=== PATIENT | female | born 1935 | race African-American/Black ===

== ENCOUNTER 2017-03-09 10:40 | Inpatient (IN) | payer OTHER ==
[2017-03-09 10:53] VITALS: BMI 28.4
--- NOTE | 2017-03-09 10:56 | PDOC ---
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 She was in bed prior to the incident so she did not suffer any trauma. Her home health aid eventually woke her up after some shaking and the patient returned to her baseline. She had some nausea with one episode of vomiting after the incident. The patient was on Lovenox in the past for anticoagulation but then it was stopped. Denies fevers, chills, diarrhea, cough, chest pain or other symptoms. Per family at bedside her current physical picture is per her baseline. Her PCP is Dr. Ochoa from [facility], not affiliated with [facility]. 03/09/17 12:05 Past History - Past Medical History Allergies/Adverse Reactions: Allergies Allergy/AdvReac Type Severity Reaction Status Date / Time No Known Allergies Allergy Verified 03/09/17 10:53 Home Medications: Ambulatory Orders Amlodipine Besylate [Norvasc -] 5 mg PO DAILY 03/09/17 Aspirin [Aspirin EC] 81 mg PO DAILY 03/09/17 Carbidopa/Levodopa *Cr* 25/100 [Sinemet *Cr* 25/100 -] 1 combo PO TID 03/09/17 Lisinopril [Prinivil] 10 mg PO DAILY 03/09/17 Metformin HCl 500 mg PO DAILY 03/09/17 Multivitamins [Tab-A-Vit -] 1 tab PO DAILY 03/09/17 [place]-3 Fatty Acids [[place]-3] 1,000 mg PO DAILY 03/09/17 Sertraline HCl [Zoloft -] 25 mg PO DAILY 03/09/17 Simvastatin 10 mg PO HS 03/09/17 CVA: Yes (cva x 3 left sided weakness/facial droop) Diabetes: Yes HTN: Yes Hypercholesterolemia: Yes - Psycho/Social/Smoking Cessation Hx Anxiety: No Suicidal Ideation: No Smoking History: Never smoked Have you smoked in the past 12 months: No Information on smoking cessation initiated: No Hx Alcohol Use: No Drug/Substance Use Hx: No Substance Use Type: None Review of Systems - Review of Systems Constitutional: No: Chills, Diaphoresis HEENTM: Yes: Cataracts. No: Difficulty Swallowing Respiratory: No: Cough, Shortness of Breath, Stridor, Wheezing Cardiac (ROS): No: Chest Pain, Irregular Heart Rate *Physical Exam - Vital Signs Last Vital Signs Temp Pulse Resp BP Pulse Ox 98.2 F 65 18 148/64 100 03/09/17 10:43 03/09/17 10:43 03/09/17 10:43 03/09/17 10:43 03/09/17 10:43 - Physical Exam General Appearance: Yes: Nourished, Appropriately Dressed, Thin. No: Apparent Distress HEENT: positive: EOMI, FABIAN, Other (Missing teeth. Left sided facial droop per baseline acording to family. ). negative: Normal ENT Inspection, Normal Voice Neck: negative: Tender Respiratory/Chest: positive: Lungs Clear, Normal Breath Sounds. negative: Chest Tender, Respiratory Distress Cardiovascular: positive: Regular Rhythm, Regular Rate, S1, S2. negative: Edema , JVD, Murmur, Tachycardia Gastrointestinal/Abdominal: positive: Normal Bowel Sounds, Flat, Soft. negative : Tender Extremity: negative: Normal Range of Motion (Decreased range of motion with active range but normal passive range of motion.) Integumentary: positive: Normal Color, Dry, Warm Neurologic: positive: Fully Oriented, Alert, Normal Mood/Affect. negative: Motor Strength 5/5 (Decreased motor strength on left side 2/5 but per baseline according to patient and family. No sensory deficit across face, arms, or legs.) ED Treatment Course - LABORATORY CBC & Chemistry Diagram: 03/09/17 11:33 03/09/17 11:33 Medical Decision Making - Medical Decision Making 81 year old female with symptoms concerning for TIA presenting one hour after event with complete return to baseline (left sided deficits at baseline). CT demonstrating potentially new left sided lacunar infarct so will admit patient to Dr. Vega with Dr. Segundo as the consult. Spoke with both physicians and will admit for tele admission for MRI and further workup of unresponsiveness episode which is still of unclear etiology. Possibly seizure vs. TIA. Patient also got 20 Atorvastin and 243 of aspirin to complete her 324. 03/09/17 13:03 *DC/Admit/Observation/Transfer Diagnosis at time of Disposition: TIA (transient ischemic attack) - Discharge Dispostion Admit: Yes - Referrals
[2017-03-09 12:07] LABS: INR 1.05 (0.82-1.09); PROTHROMBIN TIME (PATIENT) 11.6 SEC (9.98-11.88)
[2017-03-09 12:11] LABS: BASOPHIL 1.5 % (0-2.0); EOSINOPHIL 3.3 % (0-4.5); MCH 29.2 pg (25.7-33.7); MCHC 33.4 g/dl (32.0-36.0); MEAN CELL VOLUME 87.4 fl (80-96); MEAN PLT VOLUME 7.6 fl (7.5-11.1); NEUTROPHILS 52.9 % (42.8-82.8); PLATELET COUNT 354 K/MM3 (134-434); RDW 14.4 % (11.6-15.6); WHITE BLOOD COUNT 6.4 K/mm3 (4.0-10.0)
[2017-03-09 12:12] LABS: ALBUMIN 3.7 g/dl (3.4-5.0); ANION GAP 10 (8-16); BILIRUBIN,TOTAL 0.3 mg/dL (0.2-1.0); CO2 24 mmol/L (21-32); CREATININE 1.1 mg/dL (0.55-1.02); GLUCOSE,RANDOM 120 mg/dL (74-106); SGOT/AST 23 U/L (15-37); SGPT/ALT 9 U/L (12-78); TOT PROT 8.3 g/dl (6.4-8.2)
[2017-03-09 12:14] LABS: ALK PHOS 35 U/L (45-117); CPK 190 IU/L (26-192); TROPONIN I < 0.02 ng/ml (0.00-0.05)
[2017-03-09] MEDS ORDERED: SODIUM CHLORIDE 0.9% 1000 ML INFUS.BAG IV ONE (12:17)
--- NOTE | 2017-03-09 12:36 | PDOC ---
Attending Attestation - Physicial Exam PE: 03/09/17 12:36 GENERAL: Awake, alert, and fully oriented, in no acute distress HEAD: No signs of trauma EYES: PERRLA, EOMI, sclera anicteric, conjunctiva clear ENT: Auricles normal inspection, hearing grossly normal, nares patent, oropharynx clear without exudates. Moist mucosa NECK: Normal ROM, supple, no lymphadenopathy, JVD, or masses LUNGS: Breath sounds equal, clear to auscultation bilaterally. No wheezes, and no crackles HEART: Regular rate and rhythm, normal S1 and S2, no murmurs, rubs or gallops ABDOMEN: Soft, nontender, normoactive bowel sounds. No guarding, no rebound. No masses EXTREMITIES: Normal range of motion, no edema. No clubbing or cyanosis. No cords, erythema, or tenderness NEUROLOGICAL: Left facial droop and left sided weakness, at baseline. Decreased sensation on the left side, but thats chronic for her. No headache. Cranial nerves II through XII grossly intact. Normal speech, normal gait SKIN: Warm, Dry, normal turgor, no rashes or lesions noted. - Medical Decision Making 03/09/17 12:36 Documentation prepared by Svitlana Nur, acting as medical sales associate for Angelique Briggs DO. <Svitlana Nur - Last Filed: 03/09/17 12:36> - Resident Resident Name: Dion Damian - ED Attending Attestation I have performed the following: I have examined & evaluated the patient, The case was reviewed & discussed with the resident, I agree w/resident's findings & plan, Exceptions are as noted - HPI HPI: 03/09/17 13:10 81yo female presents to the ED c/o syncope with her aide from home. Pt c/o nausea after eating breakfast to her aide at home, then a few min later worsened her L facial droop, which has since resolved. Hx of cva in the past, hx of L sided weakness and hx of L facial droop from prior cva. Pt denies oliva. No blurred vision. No nausea now. Pt without cp/sob. No abd pain. No vomiting or diarrhea. denies urinary complaints. Residual L sided weakness. Increase in levodopa dosing 3 weeks ago from 1x per day to 3x per day. No other medication changes. - Medical Decision Making 03/09/17 12:36 I, Dr. Angelique Briggs, DO, attest that this document has been prepared under my direction and personally reviewed by me in its entirety. I further attest, that it accurately reflects all work, treatment, procedures and medical decision -making performed by me. 03/09/17 13:13 a/p: 81yo female with syncope and L sided facial droop that has since resolved. -concern for tia - head ct ordered -labs -ua -will need admission for further eval of TIA and sycnope -tele monitoring 03/09/17 13:15 called by radiology - old changes thalamus - concern for cva 03/12/17 14:33 pt with TIA, will need admission. Pt with rapid resolution of symptoms, now at baseline. Not a TPA candidate. <Angelique Briggs - Last Filed: 03/12/17 14:37> Heart Score/ECG Review - ECG Intrepretation Comment:: 03/09/17 13:15 sinus at 65, nl axis, nl interval, baseline artifact, no acute st/t wave findings <Angelique Briggs - Last Filed: 03/12/17 14:37> NIH Stroke Scale - Last Known Well Date/Time & Onset Date Last Known Well: 03/09/17 Time Last Known Well: 10:00 - Initial Evaluation Level of consciousness: Alert Ask patient the month and their age: Answers both correctly Ask patient to open & close eyes; make fist and let go: Obeys both correctly Best gaze (horizontal eye movement): Normal Visual field testing: No visual field loss Facial paresis (Show teeth/raise eyebrows/close eyes tight): Minor paralysis ( flattened nasolabial fold, asymmetry on smiling) Motor Function: Left Arm: Drift Motor Function: Right Arm: Normal (extends arm 90 (or 45) degrees for 10 seconds without drift Motor Function: Left Leg: Some effort against gravity Motor Function: Right Leg: Normal (extends leg 30 degrees for 5 seconds without drift) Limb Ataxia: Present in one limb Sensory(Use pinprick test arms,legs,trunk,face/side to side): Normal Best language (Describe picture, name items, read sentences): No Aphasia Dysarthria (read several words): Normal articulation Extinction and Inattention: No abnormality (pt with hx of prior cva with residual L mild facial droop and weakness to L arm and L leg) - Total Score NIH Stroke Scale Score: 5 <Angelique Briggs - Last Filed: 03/12/17 14:37> tPA Exclusion checklist 3-4.5h - Time Elapsed Date last known well: 03/09/17 Time last known well: 10:00 Elaspsed time: 3 Day(s) and 4 Hour(s) and 36 Minutes - Thrombolytic Therapy Candidate Is patient eligible for thrombolytic therapy: No - Ineligibility reason(s) Reasons No tPA given: See reason(s) noted above (Pt with rapid resolution of new symptoms. Not a TPA candidate) <Angelique Briggs - Last Filed: 03/12/17 14:37>
[2017-03-09 14:29] LABS: URINE APPEARANCE CLEAR; URINE BILIRUBIN NEGATIVE (NEGATIVE); URINE BLOOD NEGATIVE (NEGATIVE); URINE COLOR LTYELLOW; URINE GLUCOSE (UA) NEGATIVE (NEGATIVE); URINE KETONE NEGATIVE (NEGATIVE); URINE LEUK ESTERASE 1+ (NEGATIVE); URINE NITRITE POSITIVE (NEGATIVE); URINE PROTEIN NEGATIVE (NEGATIVE); URINE UROBILINOGEN NEGATIVE mg/dL (0.2-1.0)
[2017-03-09 14:31] LABS: URINE BACTERIA FEW /hpf (NONE SEEN); URINE MUCUS RARE; URINE RBC 1 /hpf (0-3); URINE WBC 2 /hpf (3-5)
[2017-03-09 15:00] LABS: THYROID STIMULATING HORMONE 1.29 uIU/ml (0.358-3.74)
[2017-03-09] MEDS ORDERED: ASPIRIN 81 MG CHEWABLE TABLETS PO ONE (15:44)
[2017-03-09] MEDS ORDERED: ATORVASTATIN CA 20 MG TABLET (FP) PO ONE (15:44)
[2017-03-09] MEDS ORDERED: ASPIRIN 81 MG CHEWABLE TABLETS ONE (15:46)
[2017-03-09] MEDS ORDERED: ATORVASTATIN CA 40 MG TABLET (FP) ONE (15:46)
--- NOTE | 2017-03-09 18:40 | HP ---
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 She was in bed prior to the incident so she did not suffer any trauma. Her home health aid eventually woke her up after some shaking and the patient returned to her baseline. She had some nausea with one episode of vomiting after the incident. Her PCP is Dr. Ochoa from [facility], not affiliated with [facility]. 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 Cardiovascular: Yes: HTN Endocrine: Yes: Diabetes Mellitus - Smoking History Smoking history: Never smoked Have you smoked in the past 12 months: No - Alcohol/Substance Use Hx Alcohol Use: No Home Medications - Allergies Allergies/Adverse Reactions: Allergies Allergy/AdvReac Type Severity Reaction Status Date / Time No Known Allergies Allergy Verified 03/09/17 10:53 - Home Medications Home Medications: Ambulatory Orders Amlodipine Besylate [Norvasc -] 5 mg PO DAILY 03/09/17 Aspirin [Aspirin EC] 81 mg PO DAILY 03/09/17 Carbidopa/Levodopa *Cr* 25/100 [Sinemet *Cr* 25/100 -] 1 combo PO TID 03/09/17 Lisinopril [Prinivil] 10 mg PO DAILY 03/09/17 Metformin HCl 500 mg PO DAILY 03/09/17 Multivitamins [Tab-A-Vit -] 1 tab PO DAILY 03/09/17 [place]-3 Fatty Acids [[place]-3] 1,000 mg PO DAILY 03/09/17 Sertraline HCl [Zoloft -] 25 mg PO DAILY 03/09/17 Simvastatin 10 mg PO HS 03/09/17 Physical Examination Vital Signs: Vital Signs Temperature 98.2 F 03/09/17 10:43 Pulse Rate 60 03/09/17 15:00 Respiratory Rate 18 03/09/17 15:00 Blood Pressure 129/58 03/09/17 15:00 O2 Sat by Pulse Oximetry (%) 100 03/09/17 15:00 Constitutional: Yes: No Distress HENT: Yes: Atraumatic Neck: Yes: Supple Cardiovascular: Yes: Regular Rate and Rhythm Respiratory: Yes: CTA Bilaterally Gastrointestinal: Yes: Normal Bowel Sounds Extremities: Yes: WNL Edema: No Peripheral Pulses WNL: Yes Neurological: Yes: Alert Problem List - Problems (1) TIA (transient ischemic attack) Assessment/Plan: mri no acute infarct neuro checks pt eval neuro consult Code(s): G45.9 - TRANSIENT CEREBRAL ISCHEMIC ATTACK, UNSPECIFIED (2) HTN (hypertension) Assessment/Plan: on meds stable Code(s): I10 - ESSENTIAL (PRIMARY) HYPERTENSION (3) Diabetes Assessment/Plan: on metformin Code(s): E11.9 - TYPE 2 DIABETES MELLITUS WITHOUT COMPLICATIONS Assessment/Plan Laboratory Tests 03/09/17 03/09/17 03/09/17 11:10 11:33 11:33 WBC 6.4 RBC 3.44 L Hgb 10.0 L Hct 30.1 L MCV 87.4 MCH 29.2 MCHC 33.4 RDW 14.4 Plt Count 354 MPV 7.6 Neutrophils % 52.9 Lymphocytes % 32.0 Monocytes % 10.3 H Eosinophils % 3.3 Basophils % 1.5 INR 1.05 Sodium 131 L Potassium 5.0 Chloride 97 L Carbon Dioxide 24 Anion Gap 10 BUN 18 Creatinine 1.1 H Creat Clearance w eGFR 47.55 Random Glucose 120 H Calcium 10.0 Total Bilirubin 0.3 AST 23 ALT 9 L Alkaline Phosphatase 35 L Creatine Kinase 190 Creatine Kinase Index 1.7 CK-MB (CK-2) 3.244 Troponin I < 0.02 Total Protein 8.3 H Albumin 3.7 TSH 1.29 Urine Color Urine Appearance Urine pH Urine Protein Urine Glucose (UA) Urine Ketones Urine Blood Urine Nitrite Urine Bilirubin Urine Urobilinogen Ur Leukocyte Esterase Urine RBC Urine WBC Ur Epithelial Cells Urine Bacteria Urine Mucus 03/09/17 03/09/17 14:20 14:35 WBC RBC Hgb Hct MCV MCH MCHC RDW Plt Count MPV Neutrophils % Lymphocytes % Monocytes % Eosinophils % Basophils % INR Sodium Potassium Chloride Carbon Dioxide Anion Gap BUN Creatinine Creat Clearance w eGFR Random Glucose Calcium Total Bilirubin AST ALT Alkaline Phosphatase Creatine Kinase Creatine Kinase Index CK-MB (CK-2) Troponin I Total Protein Albumin TSH Cancelled Urine Color Ltyellow Urine Appearance Clear Urine pH 7.0 Urine Protein Negative Urine Glucose (UA) Negative Urine Ketones Negative Urine Blood Negative Urine Nitrite Positive Urine Bilirubin Negative Urine Urobilinogen Negative Ur Leukocyte Esterase 1+ H Urine RBC 1 Urine WBC 2 Ur Epithelial Cells Rare Urine Bacteria Few Urine Mucus Rare Active Medications Generic Name Dose Route Start Last Admin Trade Name Lynnette PRN Reason Stop Dose Admin Amlodipine Besylate 5 mg 03/10/17 10:00 03/10/17 09:21 Norvasc - PO 5 mg DAILY SUPA Administration Aspirin 81 mg 03/10/17 10:00 03/10/17 09:20 Ecotrin - PO 81 mg DAILY SUPA Administration Atorvastatin Calcium 10 mg 03/09/17 22:00 03/09/17 22:45 Lipitor - PO 10 mg HS SUPA Administration Carbidopa/Levodopa 1 combo 03/09/17 22:00 03/10/17 14:06 Sinemet *Cr* 25/100 - PO 1 combo TID SUPA Administration Lisinopril 10 mg 03/10/17 10:00 03/10/17 09:20 Prinivil PO 10 mg DAILY SUPA Administration Metformin HCl 500 mg 03/10/17 07:00 03/10/17 06:41 Glucophage - PO Not Given DAILY@0700 SUPA Sertraline HCl 25 mg 03/10/17 10:00 03/10/17 09:20 Zoloft - PO 25 mg DAILY SUPA Administration
--- NOTE | 2017-03-09 21:29 | EKG ---
Test Reason : Blood Pressure : / mmHG Vent. Rate : 065 BPM Atrial Rate : 065 BPM P-R Int : 198 ms QRS Dur : 078 ms QT Int : 426 ms P-R-T Axes : 020 -01 035 degrees QTc Int : 443 ms NORMAL SINUS RHYTHM MINIMAL VOLTAGE CRITERIA FOR LVH, MAY BE NORMAL VARIANT NONSPECIFIC T WAVE ABNORMALITY ABNORMAL ECG NO PREVIOUS ECGS AVAILABLE Confirmed by TEJAL FRANKLIN MD ([id number]) on 03/09/2017 9:29:09 PM Referred By: Confirmed By:TEJAL FRANKLIN MD
[2017-03-09] MEDS: ATORVASTATIN CA 10 MG TABLET (FP) PO SCH (22:45)
[2017-03-09] MEDS ORDERED: PT OWN MED DRAWER 7, Y5N ONE (22:58)
[2017-03-10] MEDS ORDERED: PT OWN MED DRAWER 7, Y5N ONE ×4 (06:27→21:37)
[2017-03-10] MEDS: metFORMIN HCL 500 MG TABLET (FP) PO SCH (06:41)
--- NOTE | 2017-03-10 09:01 | CON.NEURO ---
Consult - History of Present Illness History of Present Illness: 81 Year old female. She has history of stroke x 3, DM,HTN, Parkinson disease, depression. She has some residul paralysis on left side of body. She has a home health aide. She noticed that she rolled back her head and passed out and noticed worsening of left face dropiness. There was no observed tonic clonic activity. There was no tongue bite or incontinence or post ictal confusion. [place] last stroke [place] 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 Cardio/Vascular: Yes: HTN Endocrine: Yes: Diabetes Mellitus - Alcohol/Substance Use Hx Alcohol Use: No - Smoking History Smoking history: Never smoked Have you smoked in the past 12 months: No Home Medications - Allergies Allergies/Adverse Reactions: Allergies Allergy/AdvReac Type Severity Reaction Status Date / Time No Known Allergies Allergy Verified 03/09/17 10:53 - Home Medications Home Medications: Ambulatory Orders Amlodipine Besylate [Norvasc -] 5 mg PO DAILY 03/09/17 Aspirin [Aspirin EC] 81 mg PO DAILY 03/09/17 Carbidopa/Levodopa *Cr* 25/100 [Sinemet *Cr* 25/100 -] 1 combo PO TID 03/09/17 Lisinopril [Prinivil] 10 mg PO DAILY 03/09/17 Metformin HCl 500 mg PO DAILY 03/09/17 Multivitamins [Tab-A-Vit -] 1 tab PO DAILY 03/09/17 [place]-3 Fatty Acids [[place]-3] 1,000 mg PO DAILY 03/09/17 Sertraline HCl [Zoloft -] 25 mg PO DAILY 03/09/17 Simvastatin 10 mg PO HS 03/09/17 Physical Exam-Neuro Vital Signs: Vital Signs Temperature 98.8 F 03/10/17 06:00 Pulse Rate 65 03/10/17 06:00 Respiratory Rate 18 03/10/17 06:00 Blood Pressure 155/75 03/10/17 06:00 O2 Sat by Pulse Oximetry (%) 96 03/09/17 23:00 Labs: INR, PTT INR 1.05 (0.82-1.09) 03/09/17 11:10 Imaging - Results Cat Scan: Report Reviewed MRI: Report Reviewed Assessment/Plan cc pasing out episode and worsening of left facial droopines lasting 15 minute HPI 81 Year old female. She has history of stroke x 3, DM,HTN, Parkinson disease , depression. She has some residul paralysis on left side of body. She has a home health aide. She noticed that she rolled back her head and passed out and noticed worsening of left face dropiness. There was no observed tonic clonic activity. There was no tongue bite or incontinence or post ictal confusion. During last stroke [place]. Past Medical History as above. Social History , never smoked , not able to ambulate , denies alochol abuse Home Medicaiton Amlodipine Besylate [Norvasc -] 5 mg PO DAILY 03/09/17 Aspirin [Aspirin EC] 81 mg PO DAILY 03/09/17 Carbidopa/Levodopa *Cr* [Sinemet *Cr* -] 1 combo PO TID 03/09/17 Lisinopril [Prinivil] 10 mg PO DAILY 03/09/17 Metformin HCl 500 mg PO DAILY 03/09/17 Multivitamins [Tab-A-Vit -] 1 tab PO DAILY 03/09/17 [place]-3 Fatty Acids [[place]-3] 1,000 mg PO DAILY 03/09/17 Sertraline HCl [Zoloft -] 25 mg PO DAILY 03/09/17 Simvastatin 10 mg PO HS 03/09/17 Neurological Examination Bp at admision was 129/58 alert and oriented x 3, speech is slurred, eomi and mild left sided facial palsy left sided hemparesis and there is frozen shoulder left upper extremity strength is grade 3 and left lower extremity is grade 2 sensaiton is intact ( Patient is back to her baseline) ct scan and mri showed old ischemic diseaes but nothing acute no carotid ultrasound or echo report available Assessment-- Most likely explanation of this event is possible focal seizures with secondary generalization or Syncope. Typically loss of consiouness is not associated without large stroke ( mri of brain is normal). This was the first episode. Plan-- suggest that patient my have carotid ultrasound and EEG , if she were to stay in hospital, otherwise can be done outpatient - no need for AED as it it not entirely clear and it was first episode - no need to change apsirin and statin , as suspician for stroke is low - institution librarian consult for possible syncopal episode. - Patient can follow up with me as outpatient . Thank you so much Sabas Ware MD
[2017-03-10] MEDS: LISINOPRIL 10 MG TABLET (FP) PO SCH (09:20)
[2017-03-10] MEDS: SERTRALINE HCL 25 MG TABLET (FP) PO SCH (09:20)
[2017-03-10] MEDS: ASPIRIN COATED 81 MG TABLET.EC PO SCH (09:20)
[2017-03-10] MEDS: amLODIPine BESYLATE 5 MG TABLET (FP) PO SCH (09:21)
--- NOTE | 2017-03-10 10:46 | CONSULT ---
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 She was in bed prior to the incident so she did not suffer any trauma. Her home health aid eventually woke her up after some shaking and the patient returned to her baseline. She had some nausea with one episode of vomiting after the incident." Per nursing, pt is holding PO trials in her mouth, unable to transfer. 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
--- NOTE | 2017-03-10 12:30 | PN ---
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, BINDERY LEADPERSON - Note 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: Attempted to see pt several times, however, downstairs for testing. Nursing reports oral holding during po trials.. Suggest ddowngrade to dys puree and nectar thick liquids.Monitor tolerance. To follow.
--- NOTE | 2017-03-10 17:19 | PN ---
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, Physician History of Present Illness: feeling better - Current Medication List Current Medications: Active Medications Amlodipine Besylate (Norvasc -) 5 mg PO DAILY [facility] Last Admin: 03/10/17 09:21 Dose: 5 mg Aspirin (Ecotrin -) 81 mg PO DAILY [facility] Last Admin: 03/10/17 09:20 Dose: 81 mg Atorvastatin Calcium (Lipitor -) 10 mg PO HS [facility] Last Admin: 03/09/17 22:45 Dose: 10 mg Carbidopa/Levodopa (Sinemet *Cr* 25/100 -) 1 combo PO TID [facility] Last Admin: 03/10/17 14:06 Dose: 1 combo Lisinopril (Prinivil) 10 mg PO DAILY [facility] Last Admin: 03/10/17 09:20 Dose: 10 mg Metformin HCl (Glucophage -) 500 mg PO DAILY@0700 [facility] Last Admin: 03/10/17 06:41 Dose: Not Given Sertraline HCl (Zoloft -) 25 mg PO DAILY [facility] Last Admin: 03/10/17 09:20 Dose: 25 mg - Objective Vital Signs: Vital Signs Temperature 99.5 F 03/10/17 13:29 Pulse Rate 62 03/10/17 13:29 Respiratory Rate 16 03/10/17 13:29 Blood Pressure 150/64 03/10/17 13:29 O2 Sat by Pulse Oximetry (%) 98 03/10/17 07:35 Constitutional: Yes: Calm HENT: Yes: Atraumatic Neck: Yes: Supple Cardiovascular: Yes: Regular Rate and Rhythm Respiratory: Yes: CTA Bilaterally Extremities: Yes: WNL Edema: No Peripheral Pulses WNL: Yes Neurological: Yes: Alert, Weakness (luex llex) Labs: INR, PTT INR 1.05 (0.82-1.09) 03/09/17 11:10 Problem List - Problems (1) TIA (transient ischemic attack) Assessment/Plan: mri no acute infarct neuro checks carotid us done...no significant stenosis per report will get cardiology consult need to r/o arrythmia Code(s): G45.9 - TRANSIENT CEREBRAL ISCHEMIC ATTACK, UNSPECIFIED (2) HTN (hypertension) Assessment/Plan: on meds stable Code(s): I10 - ESSENTIAL (PRIMARY) HYPERTENSION (3) Diabetes Assessment/Plan: on metformin Code(s): E11.9 - TYPE 2 DIABETES MELLITUS WITHOUT COMPLICATIONS
[2017-03-10] MEDS: ATORVASTATIN CA 10 MG TABLET (FP) PO SCH (22:36)
[2017-03-11] MEDS ORDERED: PT OWN MED DRAWER 7, Y5N ONE ×3 (06:15→20:49)
[2017-03-11] MEDS: metFORMIN HCL 500 MG TABLET (FP) PO SCH (06:16)
[2017-03-11] MEDS: amLODIPine BESYLATE 5 MG TABLET (FP) PO SCH (09:21)
[2017-03-11] MEDS: SERTRALINE HCL 25 MG TABLET (FP) PO SCH (09:21)
[2017-03-11] MEDS: LISINOPRIL 10 MG TABLET (FP) PO SCH (09:21)
[2017-03-11] MEDS: ASPIRIN COATED 81 MG TABLET.EC PO SCH (09:21)
--- NOTE | 2017-03-11 10:33 | CONSULT ---
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 She was in bed prior to the incident so she did not suffer any trauma. Her home health aid eventually woke her up after some shaking and the patient returned to her baseline. She had some nausea with one episode of vomiting after the incident." Per nursing, pt is holding PO trials in her mouth, unable to transfer. Attempted to see pt sdeveral times on the , but she was off the floor. 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 - Admission Reason For Visit: TRANSIENT CEREBRAL ISCHEMIA - Diagnostics X-ray: Report Reviewed CT Scan: Report Reviewed MRI: Report Reviewed - General Mental Status: Alert and Oriented, Awake and Alert, Able to Follow Commands Attention: Intact Ability to Follow Directions: Good Head/Neck Control: Good - Hearing Hearing: Normal Speech Evaluation - Communication Primary Language: [place] Oral Expression Ability: Yes: Mild Impairment - Speech Production Dysarthria: Yes: Hypokinetic Able to Make Needs Known: Yes: Mildly Impaired Intelligibility: Yes: Mildly Impaired - Speech Characteristics Voice Loudness: Mildly Soft/Quiet Voice Pitch: Yes: Normal Voice Phonatory-based Quality: Yes: Normal Nasal Resonance: Normal Articulation: Yes: Precise Voice, Other Observations: Yes: Progressively Weak Voice - Language/Auditory Comprehension Follows: Yes: 1 Stage Simple Commands - Language/Verbal Expression Able to Respond to Simple Queries: Yes: WNL Able to Communicate Wants and Needs: Yes: WNL Functional Communication Status: Yes: WNL - 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 Mild hypokinetic dysarthria. tremor/pill rolling? in left contracted hand. - Disposition Discharge to: Home with Assist (sched for today) - Dysphagia Impressions/Plan Swallowing Skills: Impaired Dysphagia Impressions: Mild Impairment *Silent aspiration: cannot be R/O at bedside Dysphagia Treatment Plan: Small Bites, Chin Tuck/Down, Safe Rate, 1/2 tsp. at a time, Elevate HOB during feed, OOB for meals, OOB for 1 h. after meals, Other ( Alternate solids with liquids) Recommendations: Neuro Consult (f/u as out pt for possible adjustment of PD medication to assist in oral dysphagia.), Modified Barium Swallow (as out pt, if indicated.) - Recommendations Diet Consistency: Dysphagia Minced, 1 - 2 Soft Items Medication Administration: Whole with water Liquids: Thin Liquids (single sips) Supplement: Ensure
--- NOTE | 2017-03-11 11:53 | CON.CARD ---
Consult - History of Present Illness History of Present Illness: Consultation requested by Dr. Silvia Traore Cardiology Consultation Location: [address] Chief Complaint: 1. LOC 81 year old Black female [place] has long standing history of HTN, NIDDM, hypercholesterolemia, recurring CVAs. History of probable Parkinsonism. Patient was brought to the hospital with history of nausea, followed by sudden LOC and vomiting. There is no mention of seizures, loss of sphincter control or new motor or sensory deficits. No history of chest pain or discomfort, no dyspnea or orthopnea reported. No history of palpitations, lightheadedness with change in posture of position or vertigo. Patient states that she is mostly bed bound. Past History: As mentioned in the history of present illness Surgical history: 1. S/p abdominal surgery for a benign mass 2. S/p bilateral cataract surgery 3. S/p appendectomy Social history: , has 10 children. Patient is uncertain if they have any illnesses, non- smoker and does not drink. Family history: Patient is unsure at what ages her parents or whether they had any illnesses. Had ten siblings, most of them are . Allergies: None reported. Home Medication List Active Medications Generic Name Dose Route Start Last Admin Trade Name Freq PRN Reason Stop Dose Admin Amlodipine Besylate 5 mg 03/10/17 10:00 03/11/17 09:21 Norvasc - PO 5 mg DAILY SUPA Administration Aspirin 81 mg 03/10/17 10:00 03/11/17 09:21 Ecotrin - PO 81 mg DAILY SUPA Administration Atorvastatin Calcium 10 mg 03/09/17 22:00 03/10/17 22:36 Lipitor - PO 10 mg HS SUPA Administration Carbidopa/Levodopa 1 combo 03/09/17 22:00 03/11/17 06:16 Sinemet *Cr* 25/100 - PO Not Given TID SUPA Lisinopril 10 mg 03/10/17 10:00 03/11/17 09:21 Prinivil PO 10 mg DAILY SUPA Administration Metformin HCl 500 mg 03/10/17 07:00 03/11/17 06:16 Glucophage - PO Not Given DAILY@0700 SUPA Sertraline HCl 25 mg 03/10/17 10:00 03/11/17 09:21 Zoloft - PO 25 mg DAILY SUPA Administration Review of Systems: Constitutional: No history of chills, fever or night sweats. No history of unintentional weight loss. HEENT: No history of headaches, diplopia, blurred vision. No history of epistaxis or hoarseness. No tinnitus. Cardiovascular: See history of present illness. Respiratory: See history of present illness. No history of cough, expectoration or hemoptysis. No history of tuberculosis. GI: See history of present illness. No history of melena, or hematemesis. No history of abdominal pain or discomfort, no change in bowel habits reported. 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 Endocrine: No history of polyuria or polydipsia. No history of intolerance to cold or warm weather. Musculoskeletal: No arthralgias or history of myalgia. : No history of frequency, dysuria or hematuria reported. HEME: No history of bleeding, anemia or ecchymosis. O: 81 year old female was in no acute distress, no pallor, cyanosis, clubbing, or jaundice. Last Vital Signs Temp Pulse Resp BP Pulse Ox 98.7 F 66 20 141/56 95 03/11/17 09:20 03/11/17 09:20 03/11/17 09:20 03/11/17 09:20 03/11/17 06:00 Intake & Output 03/08/17 03/09/17 03/10/17 03/11/17 23:59 23:59 23:59 23:59 Intake Total 25 550 Balance 25 550 Weight 165 lb 11.2 oz Neck: Supple, no JVD, negative HJR, carotids were equal and upstrokes were normal, no thyromegaly appreciated. Heart: PMI was in the 5th intercostal space, no heaves or thrills, S1 and S2 were normal. No murmurs or gallops were appreciated. Lungs: Clear on auscultation bilaterally. Abdomen: Soft, nontender, no hepatosplenomegaly appreciated, and no palpable masses were felt. Extremities: No calf tenderness or dependent edema. Pulses are normal. EC03/09/17 Baseline artifacts, sinus rhythm, LAD, nonspecific ST-T abnormalities, no previous ECG is available for comparison. Lab Data: CBCD WBC 6.4 K/mm3 (4.0-10.0) 03/09/17 11:33 RBC 3.44 M/mm3 (3.60-5.2) L 03/09/17 11:33 Hgb 10.0 GM/dL (10.7-15.3) L 03/09/17 11:33 Hct 30.1 % (32.4-45.2) L 03/09/17 11:33 MCV 87.4 fl (80-96) 03/09/17 11:33 MCHC 33.4 g/dl (32.0-36.0) 03/09/17 11:33 RDW 14.4 % (11.6-15.6) 03/09/17 11:33 Plt Count 354 K/MM3 (134-434) 03/09/17 11:33 MPV 7.6 fl (7.5-11.1) 03/09/17 11:33 CMP Sodium 131 mmol/L (136-145) L 03/09/17 11:33 Potassium 5.0 mmol/L (3.5-5.1) 03/09/17 11:33 Chloride 97 mmol/L (98-107) L 03/09/17 11:33 Carbon Dioxide 24 mmol/L (21-32) 03/09/17 11:33 Anion Gap 10 (8-16) 03/09/17 11:33 BUN 18 mg/dL (7-18) 03/09/17 11:33 Creatinine 1.1 mg/dL (0.55-1.02) H 03/09/17 11:33 Creat Clearance w eGFR 47.55 (>60) 03/09/17 11:33 Calcium 10.0 mg/dL (8.5-10.1) 03/09/17 11:33 Total Bilirubin 0.3 mg/dL (0.2-1.0) 03/09/17 11:33 AST 23 U/L (15-37) 03/09/17 11:33 ALT 9 U/L (12-78) L 03/09/17 11:33 Alkaline Phosphatase 35 U/L (45-117) L 03/09/17 11:33 Total Protein 8.3 g/dl (6.4-8.2) H 03/09/17 11:33 Albumin 3.7 g/dl (3.4-5.0) 03/09/17 11:33 X-Ray Chest: No evidence of active pulmonary disease. Carotid Ultrasound: No obstructive carotid artery disease reported. Impression: 1. Syncope, etiology: a). Most probably vasovagal, in view of clinical presentations of nausea preceding the syncopal episode. b). Cerebrovascular ischemia c). Arrythmias need to be excluded. d). Hypoglycemic episode, needs to be excluded. 2. HTN/HCVD 3. NIDDM. 4. Hypercholesterolemia. 5. S/p CVA with left hemiplegia. 6. Parkinsonism. 7. Anemia, etiology to be determined. 8. Hyponatremia. Recommendation: 1. Repeat CBC, lipid profile and BMP. 2. Evaluation of anemia. 3. Holter monitor. 4. Bedside echocardiogram. 5. Check BP supine and sitting. 6. Follow up ECG. Prognosis: Guarded Attestation: Documentation prepared by Laura Jefferson, acting as medical device engineer for Joaquin Russo MD. 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 - Allergies Allergies/Adverse Reactions: Allergies Allergy/AdvReac Type Severity Reaction Status Date / Time No Known Allergies Allergy Verified 03/09/17 10:53 - Home Medications Home Medications: Ambulatory Orders Amlodipine Besylate [Norvasc -] 5 mg PO DAILY 03/09/17 Aspirin [Aspirin EC] 81 mg PO DAILY 03/09/17 Carbidopa/Levodopa *Cr* 25/100 [Sinemet *Cr* 25/100 -] 1 combo PO TID 03/09/17 Lisinopril [Prinivil] 10 mg PO DAILY 03/09/17 Metformin HCl 500 mg PO DAILY 03/09/17 Multivitamins [Tab-A-Vit -] 1 tab PO DAILY 03/09/17 [place]-3 Fatty Acids [[place]-3] 1,000 mg PO DAILY 03/09/17 Sertraline HCl [Zoloft -] 25 mg PO DAILY 03/09/17 Simvastatin 10 mg PO HS 03/09/17 Vital Signs: Vital Signs Temperature 98.7 F 03/11/17 09:20 Pulse Rate 66 03/11/17 09:20 Respiratory Rate 20 03/11/17 09:20 Blood Pressure 141/56 03/11/17 09:20 O2 Sat by Pulse Oximetry (%) 95 03/11/17 06:00 - Other Data Labs, Other Data: INR, PTT INR 1.05 (0.82-1.09) 03/09/17 11:10
--- NOTE | 2017-03-11 16:15 | PN ---
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, Physician History of Present Illness: feeling better - Current Medication List Current Medications: Active Medications Amlodipine Besylate (Norvasc -) 5 mg PO DAILY [facility] Last Admin: 03/11/17 09:21 Dose: 5 mg Aspirin (Ecotrin -) 81 mg PO DAILY [facility] Last Admin: 03/11/17 09:21 Dose: 81 mg Atorvastatin Calcium (Lipitor -) 10 mg PO HS [facility] Last Admin: 03/10/17 22:36 Dose: 10 mg Carbidopa/Levodopa (Sinemet *Cr* 25/100 -) 1 combo PO TID [facility] Last Admin: 03/11/17 15:04 Dose: 1 combo Lisinopril (Prinivil) 10 mg PO DAILY [facility] Last Admin: 03/11/17 09:21 Dose: 10 mg Metformin HCl (Glucophage -) 500 mg PO DAILY@0700 [facility] Last Admin: 03/11/17 06:16 Dose: Not Given Sertraline HCl (Zoloft -) 25 mg PO DAILY [facility] Last Admin: 03/11/17 09:21 Dose: 25 mg - Objective Vital Signs: Vital Signs Temperature 98.8 F 03/11/17 14:00 Pulse Rate 64 03/11/17 14:00 Respiratory Rate 20 03/11/17 14:00 Blood Pressure 145/65 03/11/17 14:00 O2 Sat by Pulse Oximetry (%) 95 03/11/17 06:00 Constitutional: Yes: No Distress HENT: Yes: Atraumatic Neck: Yes: Supple Cardiovascular: Yes: Regular Rate and Rhythm Respiratory: Yes: CTA Bilaterally Gastrointestinal: Yes: Normal Bowel Sounds Extremities: Yes: WNL Neurological: Yes: Weakness (left upper and lower extremity post cva) Labs: INR, PTT INR 1.05 (0.82-1.09) 03/09/17 11:10 Problem List - Problems (1) TIA (transient ischemic attack) Assessment/Plan: mri no acute infarct neuro checks carotid us done...no significant stenosis per report echo holter Code(s): G45.9 - TRANSIENT CEREBRAL ISCHEMIC ATTACK, UNSPECIFIED (2) HTN (hypertension) Assessment/Plan: on meds stable Code(s): I10 - ESSENTIAL (PRIMARY) HYPERTENSION (3) Diabetes Assessment/Plan: on metformin Code(s): E11.9 - TYPE 2 DIABETES MELLITUS WITHOUT COMPLICATIONS (4) Parkinson disease Assessment/Plan: neuro to look into the dose of sinemet Code(s): G20 - PARKINSON'S DISEASE
[2017-03-11] MEDS: ATORVASTATIN CA 10 MG TABLET (FP) PO SCH (21:38)
[2017-03-12] MEDS: metFORMIN HCL 500 MG TABLET (FP) PO SCH (06:11)
[2017-03-12] MEDS ORDERED: PT OWN MED DRAWER 7, Y5N ONE ×3 (06:13→20:39)
--- NOTE | 2017-03-12 08:58 | PN ---
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 (short form) - Note 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: cc pasing out episode and worsening of left facial droopines lasting 15 minute 81 Year old female. She has history of stroke x 3, DM,HTN, Parkinson disease, depression. She has some residul paralysis on left side of body. She has a home health aide. She noticed that she rolled back her head and passed out and noticed worsening of left face dropiness. There was no observed tonic clonic activity. There was no tongue bite or incontinence or post ictal confusion. [place] stroke [place] My suspician fo rstroke was low. no more episode, and possible seizure vs syncope. EEG was normal and carotid ultraosund is norml Past Medical History as above. 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 Plan-- no further treatment ( AED) OR TESTTING from neurological perspective - would see her as needed basis. she can follow up as outpatient please feel free to call me if you have any question. Sabas Ware MD
[2017-03-12] MEDS: LISINOPRIL 10 MG TABLET (FP) PO SCH (10:14)
[2017-03-12] MEDS: SERTRALINE HCL 25 MG TABLET (FP) PO SCH (10:14)
[2017-03-12] MEDS: ASPIRIN COATED 81 MG TABLET.EC PO SCH (10:14)
[2017-03-12] MEDS: amLODIPine BESYLATE 5 MG TABLET (FP) PO SCH (10:14)
--- NOTE | 2017-03-12 11:30 | PN ---
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 Case discussed with Dr. Vega on 03/11/17. I believe dysphagia symptoms are related to Parkinsons. Pt may benefit from PD medication modification. Recommendations Diet Consistency: Dysphagia Minced, 1 - 2 Soft Items Medication Administration: Whole with water Liquids: Thin Liquids (single sips) Supplement: Ensure
--- NOTE | 2017-03-12 16:45 | DS ---
Physical Examination Vital Signs: Vital Signs Temperature 99.5 F 03/12/17 14:25 Pulse Rate 69 03/12/17 14:25 Respiratory Rate 16 03/12/17 14:25 Blood Pressure 149/62 03/12/17 14:25 O2 Sat by Pulse Oximetry (%) 97 03/12/17 09:00 Discharge Summary Reason For Visit: TRANSIENT CEREBRAL ISCHEMIA Current Active Problems Diabetes (Acute) HTN (hypertension) (Acute) Parkinson disease (Acute) TIA (transient ischemic attack) (Acute) - Instructions Referrals: STAFF,NOT ON [Primary Care Provider] - - Home Medications Comprehensive Discharge Medication List: Ambulatory Orders Amlodipine Besylate [Norvasc -] 5 mg PO DAILY 03/09/17 Aspirin [Aspirin EC] 81 mg PO DAILY 03/09/17 Carbidopa/Levodopa *Cr* 25/100 [Sinemet *Cr* 25/100 -] 1 combo PO TID 03/09/17 Lisinopril [Prinivil] 10 mg PO DAILY 03/09/17 Metformin HCl 500 mg PO DAILY 03/09/17 Multivitamins [Multivit ([facility] Formulary)] 1 tab PO DAILY 03/09/17 [place]-3 Fatty Acids [[place]-3] 1,000 mg PO DAILY 03/09/17 Sertraline HCl [Zoloft -] 25 mg PO DAILY 03/09/17 Simvastatin 10 mg PO HS 03/09/17 ct home
--- NOTE | 2017-03-12 17:43 | PN ---
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, Physician History of Present Illness: holter was appled today cant dc her today - Current Medication List Current Medications: Active Medications Amlodipine Besylate (Norvasc -) 5 mg PO DAILY [facility] Last Admin: 03/12/17 10:14 Dose: 5 mg Aspirin (Ecotrin -) 81 mg PO DAILY [facility] Last Admin: 03/12/17 10:14 Dose: 81 mg Atorvastatin Calcium (Lipitor -) 10 mg PO HS [facility] Last Admin: 03/11/17 21:38 Dose: 10 mg Carbidopa/Levodopa (Sinemet *Cr* 25/100 -) 1 combo PO TID [facility] Last Admin: 03/12/17 13:47 Dose: 1 combo Lisinopril (Prinivil) 10 mg PO DAILY [facility] Last Admin: 03/12/17 10:14 Dose: 10 mg Metformin HCl (Glucophage -) 500 mg PO DAILY@0700 [facility] Last Admin: 03/12/17 06:11 Dose: Not Given Sertraline HCl (Zoloft -) 25 mg PO DAILY [facility] Last Admin: 03/12/17 10:14 Dose: 25 mg - Objective Vital Signs: Vital Signs Temperature 99.5 F 03/12/17 14:25 Pulse Rate 69 03/12/17 14:25 Respiratory Rate 16 03/12/17 14:25 Blood Pressure 149/62 03/12/17 14:25 O2 Sat by Pulse Oximetry (%) 97 03/12/17 09:00 Constitutional: Yes: No Distress HENT: Yes: Atraumatic Neck: Yes: Supple Cardiovascular: Yes: Regular Rate and Rhythm Respiratory: Yes: CTA Bilaterally Gastrointestinal: Yes: Normal Bowel Sounds Extremities: Yes: WNL Neurological: Yes: Alert, Oriented Labs: INR, PTT INR 1.05 (0.82-1.09) 03/09/17 11:10 Problem List - Problems (1) TIA (transient ischemic attack) Assessment/Plan: mri no acute infarct neuro checks carotid us done...no significant stenosis per report echo holter...applied toda need cardiology input before dc Code(s): G45.9 - TRANSIENT CEREBRAL ISCHEMIC ATTACK, UNSPECIFIED (2) HTN (hypertension) Assessment/Plan: on meds stable Code(s): I10 - ESSENTIAL (PRIMARY) HYPERTENSION (3) Diabetes Assessment/Plan: on metformin Code(s): E11.9 - TYPE 2 DIABETES MELLITUS WITHOUT COMPLICATIONS (4) Parkinson disease Assessment/Plan: on sinemet Code(s): G20 - PARKINSON'S DISEASE
[2017-03-12] MEDS: ATORVASTATIN CA 10 MG TABLET (FP) PO SCH (21:32)
[2017-03-13] MEDS ORDERED: PT OWN MED DRAWER 7, Y5N ONE (05:43)
[2017-03-13] MEDS: metFORMIN HCL 500 MG TABLET (FP) PO SCH (06:10)
[2017-03-13 06:42] LABS: BASOPHIL 1.3 % (0-2.0); EOSINOPHIL 6.2 % (0-4.5); MCH 29.5 pg (25.7-33.7); MCHC 33.9 g/dl (32.0-36.0); MEAN CELL VOLUME 87.3 fl (80-96); MEAN PLT VOLUME 7.5 fl (7.5-11.1); PLATELET COUNT 325 K/MM3 (134-434); RDW 14.7 % (11.6-15.6); WHITE BLOOD COUNT 5.6 K/mm3 (4.0-10.0)
[2017-03-13 07:00] LABS: ALBUMIN 3.2 g/dl (3.4-5.0); ALK PHOS 29 U/L (45-117); ANION GAP 7 (8-16); BILIRUBIN,TOTAL 0.4 mg/dL (0.2-1.0); CALCIUM 8.7 mg/dL (8.5-10.1); CO2 26 mmol/L (21-32); CREATININE 1.1 mg/dL (0.55-1.02); GLUCOSE,RANDOM 92 mg/dL (74-106); SGOT/AST 14 U/L (15-37); SGPT/ALT 8 U/L (12-78); TOT PROT 7.2 g/dl (6.4-8.2)
[2017-03-13] MEDS: SERTRALINE HCL 25 MG TABLET (FP) PO SCH (09:06)
[2017-03-13] MEDS: amLODIPine BESYLATE 5 MG TABLET (FP) PO SCH (09:06)
[2017-03-13] MEDS: ASPIRIN COATED 81 MG TABLET.EC PO SCH (09:07)
[2017-03-13] MEDS: LISINOPRIL 10 MG TABLET (FP) PO SCH (09:07)
[2017-03-13 13:52] VITALS: BP 138/55; PULSE 67; TEMP 99.3
--- NOTE | 2017-03-13 13:52 | HOL ---
Hook-up date: 2017-03-12 09:24:00 Duration: 24:00:00 Test Indications: R/O ARRYTHMIA Medications: 23303 QRS complexes 3 Ventricular ectopics which represent <1 % of total QRS comp. 437 Supraventricular ectopics which represent <1 % of total QRS comp. * Paced QRS complexs which represent % of total QRS comp. * % of Time Classified as Noise VENTRICULAR ECTOPY 1 Isolated 0 Bigeminal Cycles 1 Couplets 0 Runs 0 Beats in Runs * Beats LONGEST at * BPM at :: -- * Beats FASTEST at * BPM at :: -- SUPRAVENTRICULAR ECTOPY 427 Isolated 0 Couplets 2 Runs 10 Beats in Runs 7 Beats LONGEST at 139 BPM at 08:46:33 2017-03-13 7 Beats FASTEST at 139 BPM at 08:46:33 2017-03-13 HEART RATES 51 MIN at 06:51:15 2017-03-13 64 AVG 105 MAX at 14:55:49 2017-03-12 LONGEST RR 1.424 secs at 04:07:58 2017-03-13 The underlying rhythm was normal sinus ranging from 51 bpm to 105bpm with an average rate of 64 bpm. There were occasional single atrial premature contractions. Single episode of self limited paroxysmal supraventricular tachycardia at a rate of 139bpm, lasting 7 beats. Rare singel ventricular premature contractions and a single ventricular couplet. No diary entries. Confirmed by DEJAN GALAVIZ MD ([id number]) on 03/13/2017 1:52:05 PM Referred By: Overread By: DEJAN GALAVIZ MD
--- NOTE | 2017-03-13 14:22 | PN ---
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: 03/11/17 03/11/17 03/11/17 01:37 06:00 09:00 Breakfast 75% Lunch Supper Temperature 98.8 F 98.9 F 03/11/17 03/11/17 03/11/17 09:20 12:53 14:00 Breakfast Lunch 75% Supper Temperature 98.7 F 98.8 F 03/11/17 03/11/17 03/11/17 17:01 18:00 22:00 Breakfast Lunch Supper 75% Temperature 98.8 F 99.0 F 03/12/17 03/12/17 03/12/17 02:00 06:00 09:30 Breakfast 75% Lunch Supper Temperature 98.4 F 98.8 F Selected Entries 03/12/17 03/12/17 03/12/17 09:30 14:25 18:34 Breakfast 75% Lunch 100% Supper 100% 03/13/17 03/13/17 09:19 13:02 Breakfast 100% Lunch 75% Supper Pt is on pureed diet and nectar thick liquid. Recommendations Diet Consistency: Dysphagia Minced, 1 - 2 Soft Items Medication Administration: Whole with water Liquids: Thin Liquids (single sips) Supplement: Ensure Pending d/c.
--- NOTE | 2017-03-13 20:37 | DS ---
Physical Examination Vital Signs: Vital Signs Temperature 99.3 F 03/13/17 13:51 Pulse Rate 67 03/13/17 13:51 Respiratory Rate 16 03/13/17 13:51 Blood Pressure 138/55 03/13/17 13:51 O2 Sat by Pulse Oximetry (%) 99 03/13/17 09:08 Labs: CBC, BMP 03/13/17 06:00 03/13/17 06:00 Discharge Summary Reason For Visit: TRANSIENT CEREBRAL ISCHEMIA Current Active Problems Diabetes (Acute) HTN (hypertension) (Acute) Parkinson disease (Acute) TIA (transient ischemic attack) (Acute) - Instructions Diet, Activity, Other Instructions: dysphagia puree diet plese give lorro nabil recommendation see your neurologist as out pt Referrals: Sabas Ware MD [Staff Physician] - STAFF,NOT ON [Primary Care Provider] - Joaquin Russo MD [Staff Physician] - Disposition: HOME - Home Medications Comprehensive Discharge Medication List: Ambulatory Orders Amlodipine Besylate [Norvasc -] 5 mg PO DAILY 03/09/17 Aspirin [Aspirin EC] 81 mg PO DAILY 03/09/17 Carbidopa/Levodopa *Cr* 25/100 [Sinemet *Cr* 25/100 -] 1 combo PO TID 03/09/17 Lisinopril [Prinivil] 10 mg PO DAILY 03/09/17 Metformin HCl 500 mg PO DAILY 03/09/17 Multivitamins [Multivit ([facility] Formulary)] 1 tab PO DAILY 03/09/17 [place]-3 Fatty Acids [[place]-3] 1,000 mg PO DAILY 03/09/17 Sertraline HCl [Zoloft -] 25 mg PO DAILY 03/09/17 Simvastatin 10 mg PO HS 03/09/17 holter report and other reports reviewed dc home
== END 2017-03-13 17:53 | disposition home or self-care (01) | DRG 47 ==
LOC: JER 10:40 → INTOOBSV 14:28 → UNDOADMOB 14:28 → JERBED 14:28 → J4S 19:05 → OBSVTOIN 03-11 17:16
PROVIDERS: ADMIT Internal Medicine; ATTEND Internal Medicine
DX: G45.8 Other transient cerebral ischemic attacks and related syndromes (principal); I10 Essential (primary) hypertension; E11.9 Type 2 diabetes mellitus without complications; G20 Parkinson's disease; F02.80 Dementia in other diseases classified elsewhere, unspecified severity, without behavioral disturbance, psychotic disturbance, mood disturbance, and anxiety; F32.89 Other specified depressive episodes; I69.354 Hemiplegia and hemiparesis following cerebral infarction affecting left non-dominant side; R55 Syncope and collapse; I11.9 Hypertensive heart disease without heart failure; D64.9 Anemia, unspecified; E87.1 Hypo-osmolality and hyponatremia; E78.00 Pure hypercholesterolemia, unspecified; R56.9 Unspecified convulsions; G51.0 Bell's palsy
CPT/HCPCS: 36415; 70450-TC; 70551-TC; 71010-TC; 80053; 81003; 81015; 82553; 84443; 84484; 85025; 85610; 87086; 87186; 93005; 93010; 93225; 93226; 93306-TC; 93880-TC; 95816; 97116-GP; 97161-GP; 99285-25; G0378

== ENCOUNTER 2017-03-22 11:47 | Inpatient (IN) | payer OTHER ==
[2017-03-22 12:11] VITALS: BMI 28.3
[2017-03-22 12:35] LABS: BASOPHIL 1.9 % (0-2.0); MCH 29.4 pg (25.7-33.7); MCHC 33.9 g/dl (32.0-36.0); MEAN CELL VOLUME 86.8 fl (80-96); MEAN PLT VOLUME 7.4 fl (7.5-11.1); NEUTROPHILS 58.4 % (42.8-82.8); PLATELET COUNT 421 K/MM3 (134-434); RDW 14.8 % (11.6-15.6); WHITE BLOOD COUNT 6.9 K/mm3 (4.0-10.0)
--- NOTE | 2017-03-22 12:58 | PDOC ---
History of Present Illness - General Stated Complaint: POSSIBLE SEIZURE Time Seen by Provider: 03/22/17 11:54 History Source: Patient Exam Limitations: No Limitations - History of Present Illness Initial Comments: 81 year old female with PMH of CVA x3 with residual left-sided weakness, Parkinson's disease, and NIDDM who presents c/o two episodes of apparent LOC. The daughter states that the patient was sitting and told her she was feeling some ear pressure. The daughter told her to open and close her mouth repeatedly to pop the ear, and the patient began doing this but randomly "spaced out" and her head dropped backward while she was sitting. This first episode occurred at 11 am. She was not responsive for 8 minutes as timed by her daughter. During this episode the daughter (who is a RN) measured her blood pressure to be 132/65 , her heart rate to be 106, and her blood glucose to be 145. She was not talking at all after the first episode (patient does talk at baseline). When EMS arrived on scene and was attempting to place an IV she had a second episode of the same symptoms. She has been drowsy since the second episode resolved. Past History - Past Medical History Allergies/Adverse Reactions: Allergies Allergy/AdvReac Type Severity Reaction Status Date / Time No Known Allergies Allergy Verified 03/22/17 12:58 Home Medications: Ambulatory Orders Amlodipine Besylate [Norvasc -] 5 mg PO DAILY 03/09/17 Aspirin [Aspirin EC] 81 mg PO DAILY 03/09/17 Carbidopa/Levodopa *Cr* 25/100 [Sinemet *Cr* 25/100 -] 1 combo PO TID 03/09/17 Lisinopril [Prinivil] 10 mg PO DAILY 03/09/17 Metformin HCl 500 mg PO DAILY 03/09/17 Multivitamins [Multivit ([facility] Formulary)] 1 tab PO DAILY 03/09/17 Bourbon-3 Fatty Acids [Bourbon-3] 1,000 mg PO DAILY 03/09/17 Sertraline HCl [Zoloft -] 25 mg PO DAILY 03/09/17 Simvastatin 10 mg PO HS 03/09/17 CVA: Yes (cva x 3 left sided weakness/facial droop) Diabetes: Yes HTN: Yes Hypercholesterolemia: Yes - Suicide/Smoking/Psychosocial Hx Smoking History: Never smoked Have you smoked in the past 12 months: No Information on smoking cessation initiated: No Hx Alcohol Use: No Drug/Substance Use Hx: No Substance Use Type: None Review of Systems - Review of Systems Able to Perform ROS?: No (memory difficulty) Neurological: Yes: Other *Physical Exam - Vital Signs Last Vital Signs Temp Pulse Resp BP Pulse Ox 97.7 F 64 20 146/66 100 03/22/17 12:07 03/22/17 12:07 03/22/17 12:07 03/22/17 12:07 03/22/17 12:12 - Physical Exam General Appearance: Yes: Appropriately Dressed, Other (chronically ill-appearing , answers simple questions with whispers but otherwise not conversive, makes no eye contact). No: Apparent Distress HEENT: positive: EOMI (but difficulty with tracking), TMs Normal, Hearing Grossly Normal, Other (whispering voice only, arcus senilus, edentulous, left facial droop stated chronic by family, dry mucous membranes). negative: Scleral Icterus (R), Scleral Icterus (L), Nasal Congestion Neck: positive: Trachea midline, Supple. negative: Tender, Rigid Respiratory/Chest: positive: Lungs Clear, Normal Breath Sounds. negative: Respiratory Distress, Crackles, Rhonchi, Stridor, Wheezing Cardiovascular: positive: Regular Rhythm, Regular Rate Gastrointestinal/Abdominal: positive: Normal Bowel Sounds, Soft. negative: Tender, Organomegaly, Pulsatile Mass, Guarding Musculoskeletal: positive: Normal Inspection. negative: Decreased Range of Motion, Vertebral Tenderness Extremity: positive: Normal Capillary Refill, Other (extremity muscle atrophy with L>R). negative: Tender, Cyanosis, Pedal Edema Integumentary: positive: Normal Color, Dry, Warm. 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 NML intact (difficulty tracking finger), Alert , Normal Mood/Affect, Normal Response, Facial Droop (left sided), Other ( oriented to name and date and able to tell that she is in the hospital, motor strength 4/5 right extremities and 3/5 left extremities) Heart Score/ECG Review - History History: Slightly suspicious - Electrocardiogram EKG: Normal - Age Age: >/= 65 - Risk Factors Risk Factors Heart Score: Yes Hx Hypertension, Yes Hx Diabetes Based on the list above the patient has:: 1-2 risk factors #1 ECG reviewed & interpreted by me at: 12:10 NSR, rate of 66, normal axis and intervals, moderate voltage for LVH. ED Treatment Course - LABORATORY CBC & Chemistry Diagram: 03/24/17 05:28 03/24/17 05:28 - ADDITIONAL ORDERS Additional order review: Laboratory Results 03/22/17 11:59 POC Glucometer [id number] 03/22/17 03/22/17 12:30 11:59 RBC 3.19 L MCV 86.8 MCHC 33.9 RDW 14.8 MPV 7.4 L Neutrophils % 58.4 D Lymphocytes % 28.1 Monocytes % 8.6 Eosinophils % 3.0 Basophils % 1.9 POC Glucometer [id number] - RADIOLOGY Radiology Studies Ordered: CXR without e/o acute cardiopulmonary processes Head CT shows no interval change from prior study. Medical Decision Making - Medical Decision Making This is an 81 yof with h/o CVA, Parkinson's, NIDDM who p/w 2 episodes LOC. On exam she does answer questions but otherwise minimally interactive and family states ALOC from baseline. DDX includes seizure or syncope (i.e. 2/2 infection, cardiogenic/arrhythmia, hypotension, vasovagal, etc). Ordered is EKG, lactate, CBCD, CMP, Mg, Phos, UA cx, CXR CXR shows nothing acute. EKG without acute findings. Lactate is negative. UA suggests UTI and 1 gm ceftriaxone is ordered. CBCD unremarkable. CMP notable for elevated BUN and Cr beyond her baseline per her prior [facility] records. Liter bolus NS is ordered. Spoke at length with Pt's daughter who requests that Pt's PCP be noted as Dr. Lake in [place]. Pt receives care at her SNF from the managing provider but her PCP is Dr. Lake and has been x30 years. Pt is admitted to [facility] for further workup and management. *DC/Admit/Observation/Transfer Diagnosis at time of Disposition: LUIS (acute kidney injury) Syncope Qualifiers: Syncope type: unspecified Qualified Code(s): R55 - Syncope and collapse UTI (urinary tract infection) Qualifiers: Urinary tract infection type: acute cystitis Hematuria presence: without hematuria Qualified Code(s): N30.00 - Acute cystitis without hematuria - Discharge Dispostion Condition at time of disposition: Guarded Admit: Yes
[2017-03-22 13:07] LABS: ALBUMIN 3.6 g/dl (3.4-5.0); ALK PHOS 37 U/L (45-117); ANION GAP 8 (8-16); BILIRUBIN,TOTAL 0.4 mg/dL (0.2-1.0); CALCIUM 9.9 mg/dL (8.5-10.1); CO2 25 mmol/L (21-32); CREATININE 1.4 mg/dL (0.55-1.02); GLUCOSE,RANDOM 148 mg/dL (74-106); SGOT/AST 21 U/L (15-37); SGPT/ALT 23 U/L (12-78); TOT PROT 8.1 g/dl (6.4-8.2)
--- NOTE | 2017-03-22 13:36 | PDOC ---
Attending Attestation - Resident Resident Name: Lennie Samaniego - ED Attending Attestation I have performed the following: I have examined & evaluated the patient, The case was reviewed & discussed with the resident, I agree w/resident's findings & plan, Exceptions are as noted - HPI HPI: 03/22/17 13:33 81 yo F with h/o DM HTN, prior CVA here for syncopal vs. seizure today. per EMS pt was at table, when suddenly became unresponsive, altered, lasted few minutes. eyes open, altered lasting 8 in, and then confused following. now at baseline. no c/o not feeling wel. denies chest pain, no sob. no headache. no n/ v no other complaints. ( pt poor historian, disoriented to year) - Physicial Exam PE: 03/22/17 13:37 awake alert , eyes open, speech, quite, clear. lungs clear bilaterally, heart rrr no mrg. abd soft nt nd. ext wwp. moves all four ext. 03/22/17 13:42 - Medical Decision Making 03/22/17 13:42 differential: syncope, vs. seizure , electrolyte abnormality, infection such as uti or pneumonia, plan labs ekg trop, lactate ua. reassess. 03/22/17 13:43 pt was admitted for recent tia, seizure vs. syncope workup. had mri which showed no acute infarct, only old changes. eeg was negative. was evaluated by dr. molina. will d/w dr molina. 03/22/17 15:38 pt with uti on labs, wbc normal electrolytes noted for mild LUIS, minimal urine output on straight cath. hydrated with normal saline bolus. given ceftriaxone for uti. will admit for luis, uti and syncope. Heart Score/ECG Review #1 General ECG Interpretation: Sinus Rhythm, Normal Rate (66), Normal Intervals, No acute ischemic changes (no st t wave changes) Compared to previous ECG there are: No significant change (comparison 03/09/17)
[2017-03-22 14:32] LABS: URINE APPEARANCE CLOUDY; URINE BILIRUBIN NEGATIVE (NEGATIVE); URINE BLOOD 1+ (NEGATIVE); URINE COLOR DKYELLOW; URINE GLUCOSE (UA) NEGATIVE (NEGATIVE); URINE KETONE NEGATIVE (NEGATIVE); URINE NITRITE NEGATIVE (NEGATIVE); URINE UROBILINOGEN NEGATIVE mg/dL (0.2-1.0)
[2017-03-22 14:45] LABS: URINE LEUK ESTERASE 2+ (NEGATIVE); URINE PROTEIN 1+ (NEGATIVE)
[2017-03-22 14:46] LABS: URINE HYALINE CAST 21 /lpf; URINE MUCUS RARE; URINE RBC 30 /hpf (0-3); URINE WBC 34 /hpf (3-5)
[2017-03-22] MEDS ORDERED: SODIUM CHLORIDE 0.9% 1000 ML INFUS.BAG IV ONE (15:37)
[2017-03-22] MEDS ORDERED: CEFTRIAXONE 1 GM in DEXTROSE 5%-WATER - 50 ML IVPB ONE (15:40)
[2017-03-22] MEDS: SODIUM CHLORIDE 1,000 ML IV SCH (17:23)
--- NOTE | 2017-03-22 17:30 | HP ---
CHIEF COMPLAINT: syncope PCP: HISTORY OF PRESENT ILLNESS: The patient is an 81 yo f w/ 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 This morning while eating breakfast, she began to experience some ear pressure. The daughter told her to open and close her mouth repeatedly to relieve the pressure, at which point the patient became unresponsive and slumped over in her wheel chair. This first episode occurred at 10:55 am. She was unresponsive for approximately 8 minutes. During this time , the daughter, who is an RN, measured her BP to be 122/65, her heart rate to be 106 and her blood glucose to be 145. After she became responsive again, she was not talking as she usually would at baseline. The patient had a second episode of syncope when EMS was attempting to place an IV. She continues to be drowsy after the resolution of the second episode. Patient denied chest pain, shortness of breath, fluttering of the chest, nausea, vomiting, diarrhea. ER course was notable for: (1) afebrile, Heart rate 68, BP 155/77 (2) UA with possible UTI (3) Recent Travel: PAST MEDICAL HISTORY: -see above PAST SURGICAL HISTORY: -Benign pelvic mass removed at [facility] -tubal ligation Social History: Smoking: never Alcohol: denies Drugs: denies Family History: Allergies No Known Allergies Allergy (Verified 03/22/17 12:58) HOME MEDICATIONS: Home Medications Medication Instructions Recorded Amlodipine Besylate [Norvasc -] 5 mg PO DAILY 03/09/17 Aspirin [Aspirin EC] 81 mg PO DAILY 03/09/17 Carbidopa/Levodopa *Cr* 25/100 1 combo PO TID 03/09/17 [Sinemet *Cr* 25/100 -] Lisinopril [Prinivil] 10 mg PO DAILY 03/09/17 Metformin HCl 500 mg PO DAILY 03/09/17 Multivitamins [Multivit ([facility] 1 tab PO DAILY 03/09/17 Formulary)] Brandon-3 Fatty Acids [Brandon-3] 1,000 mg PO DAILY 03/09/17 Sertraline HCl [Zoloft -] 25 mg PO DAILY 03/09/17 Simvastatin 10 mg PO HS 03/09/17 REVIEW OF SYSTEMS CONSTITUTIONAL: Absent: fever, chills, diaphoresis, generalized weakness, malaise, loss of appetite, weight change HEENT: Absent: rhinorrhea, nasal congestion, throat pain, throat swelling, difficulty swallowing, mouth swelling, ear pain, eye pain, visual changes CARDIOVASCULAR: Absent: chest pain, palpitations, irregular heart rate, peripheral edema RESPIRATORY: Absent: cough, shortness of breath, dyspnea with exertion, orthopnea, wheezing, stridor, hemoptysis GASTROINTESTINAL: Absent: abdominal pain, abdominal distension, nausea, vomiting, diarrhea, constipation, melena, hematochezia GENITOURINARY: Absent: dysuria, frequency, urgency, hesitancy, hematuria, flank pain, genital pain MUSCULOSKELETAL: Absent: myalgia, arthralgia, joint swelling, back pain, neck pain SKIN: Absent: rash, itching, pallor HEMATOLOGIC/IMMUNOLOGIC: Absent: easy bleeding, easy bruising, lymphadenopathy, frequent infections ENDOCRINE: Absent: unexplained weight gain, unexplained weight loss, heat intolerance, cold intolerance NEUROLOGIC: Absent: headache, focal weakness or paresthesias, dizziness, unsteady gait, seizure, mental status changes, bladder or bowel incontinence PSYCHIATRIC: Absent: anxiety, depression, suicidal or homicidal ideation, hallucinations. PHYSICAL EXAMINATION GENERAL: Patient drowsy with delayed response; fully oriented, in no acute distress. HEAD: Normal with no signs of trauma. EYES: Pupils equal, round and reactive to light, extraocular movements intact, sclera anicteric, conjunctiva clear. No lid lag. EARS, NOSE, THROAT: oropharynx clear without exudates. Moist mucous membranes. NECK: Normal range of motion, supple no JVD. LUNGS: Breath sounds equal, clear to auscultation bilaterally. No wheezes, and no crackles. No accessory muscle use. HEART: Regular rate and rhythm, normal S1 and S2 without murmur, rub or gallop. ABDOMEN: Soft, nontender, not distended, normoactive bowel sounds, no guarding, no rebound, no masses. MUSCULOSKELETAL: Normal range of motion at all joints. No bony deformities or tenderness. No CVA tenderness. UPPER EXTREMITIES: 2+ pulses, warm, well-perfused. No cyanosis. No clubbing. No peripheral edema. LOWER EXTREMITIES: 2+ pulses, warm, well-perfused. No calf tenderness. No peripheral edema. NEUROLOGICAL: Cranial nerves II-X intact. Slowed speech. gait no observed. 4/5 in right extremities 3/5 in left extremities. sensation intact. SKIN: Warm, dry, normal turgor, no rashes or lesions noted, normal capillary refill. ASSESSMENT/PLAN: The patient is an 81 yo f w/ 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 #Syncopal episodes likley 2/2 dehydration 2/2 UTI vs cardiac origin -admit to tele -NS @ 75 -carotid dopplers -Rocephin 1gm daily IV -Urine cx pending -orthostatic vital signs -AM CBC, CMP, Mag, PHos -neurology consult -echo # Diabetes -BGM ACHS -ISS ACHS #parkinsons -continue with home sinemet #HTN -home lisinopril -home norvasc #HLD -home liptor #FEN -NS @ 75 -monitor lytes -diabetic diet #prophylaxsis -Heparin SQ TID -no gi prophy indicated -Home ASA 81 -PT consult #dispo -admit to tele Problem List - Problem (1) Diabetes Code(s): E11.9 - TYPE 2 DIABETES MELLITUS WITHOUT COMPLICATIONS (2) HTN (hypertension) Code(s): I10 - ESSENTIAL (PRIMARY) HYPERTENSION (3) Parkinson disease Code(s): G20 - PARKINSON'S DISEASE (4) Syncope Code(s): R55 - SYNCOPE AND COLLAPSE Qualifiers: Syncope type: unspecified Qualified Code(s): R55 - Syncope and collapse (5) UTI (urinary tract infection) Code(s): N39.0 - URINARY TRACT INFECTION, SITE NOT SPECIFIED Qualifiers: Urinary tract infection type: acute cystitis Hematuria presence: without hematuria Qualified Code(s): N30.00 - Acute cystitis without hematuria Visit type - Emergency Visit Emergency Visit: Yes ED Registration Date: 03/22/17 Care time: The patient presented to the Emergency Department on the above date and was hospitalized for further evaluation of their emergent condition. - New Patient This patient is new to me today: Yes Date on this admission: 03/22/17 - Critical Care Critical Care patient: No
--- NOTE | 2017-03-22 17:51 | PN ---
Teaching Attending Note Name of Resident: Alan Schwarz ATTENDING PHYSICIAN STATEMENT I saw and evaluated the patient. I reviewed the resident's note and discussed the case with the resident. I agree with the resident's findings and plan as documented. SUBJECTIVE: 81 year old BIBA after an episode of syncope that occurred at home during lunch. It was witnessed by her daughter who states that patient complained about " ringing in her ears" then passed out while in her wheelchair. She was unresponsive for approximately 8 min. During that time daughter checked her blood pressure and blood glucose and both were within normal range . Previous episode of syncope for which she was hospitalized. EEG at that time was negative . 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 OBJECTIVE: Vital Signs Temperature 98.4 F 03/22/17 17:07 Pulse Rate 68 03/22/17 17:07 Respiratory Rate 16 03/22/17 17:07 Blood Pressure 142/72 03/22/17 17:07 O2 Sat by Pulse Oximetry (%) 97 03/22/17 17:07 HEENT PERRL dry mucosa CVS no JVD, S1 S2 WNL RS CTA b/l ABD soft NT EXT no edema NEURO - l hemiaresis , LUE myoclonic contractions , lethargic disoriented CBC, BMP 03/22/17 12:30 03/22/17 12:30 Urine Test Results Urine Color Dkyellow 03/22/17 14:20 Urine Appearance Cloudy 03/22/17 14:20 Urine pH 6.0 (5.0-8.0) 03/22/17 14:20 Ur Specific [place] 1.015 (1.005-1.025) 03/22/17 14:20 Urine Protein 1+ (NEGATIVE) H 03/22/17 14:20 Urine Glucose (UA) Negative (NEGATIVE) 03/22/17 14:20 Urine Ketones Negative (NEGATIVE) 03/22/17 14:20 Urine Blood 1+ (NEGATIVE) H 03/22/17 14:20 Urine Nitrite Negative (NEGATIVE) 03/22/17 14:20 Urine Bilirubin Negative (NEGATIVE) 03/22/17 14:20 Urine RBC 30 /hpf (0-3) 03/22/17 14:20 Urine WBC 34 /hpf (3-5) 03/22/17 14:20 Ur Epithelial Cells Rare /hpf (FEW) 03/22/17 14:20 Urine Mucus Rare 03/22/17 14:20 ASSESSMENT AND PLAN: 1. Syncope vs Seizure - Telemetry r/o arrhythmia - orthostatic vitals - ECHO repeat - carotid dopplers - neurology evaluation 2. Hyponatremia, prerenal azotemia- hypovolemic , secondary to dehydration - IVF -repeat BMP 3. UTI - -ua culture - rocephine
[2017-03-22] MEDS ORDERED: INSULIN (NOVOLOG) ASPART 100 UNITS/ML 10ML VIAL ONE (21:46)
[2017-03-22] MEDS: INSULIN SLIDING SCALE (NOVOLOG) 1 VIAL SQ SCH (21:48)
[2017-03-22] MEDS: ATORVASTATIN CA 10 MG TABLET (FP) PO SCH (21:49)
[2017-03-22] MEDS: CARBIDOPA/LEVODOPA 25/100 TABLET (FP) PO SCH (21:49)
[2017-03-22] MEDS: HEPARIN NA (PORCINE) 5,000 UNITS/ML 1ML VIAL SQ SCH (21:49)
[2017-03-23] MEDS: HEPARIN NA (PORCINE) 5,000 UNITS/ML 1ML VIAL SQ SCH ×3 (06:00→22:00)
[2017-03-23] MEDS: INSULIN SLIDING SCALE (NOVOLOG) 1 VIAL SQ SCH ×4 (06:00→22:15)
[2017-03-23] MEDS: CARBIDOPA/LEVODOPA 25/100 TABLET (FP) PO SCH ×3 (06:00→22:02)
[2017-03-23 07:36] LABS: BASOPHIL 1.5 % (0-2.0); EOSINOPHIL 4.1 % (0-4.5); MCH 28.7 pg (25.7-33.7); MCHC 32.9 g/dl (32.0-36.0); MEAN CELL VOLUME 87.3 fl (80-96); MEAN PLT VOLUME 7.7 fl (7.5-11.1); PLATELET COUNT 366 K/MM3 (134-434); RDW 14.8 % (11.6-15.6); WHITE BLOOD COUNT 6.9 K/mm3 (4.0-10.0)
[2017-03-23 08:46] LABS: ALBUMIN 2.9 g/dl (3.4-5.0); ALK PHOS 31 U/L (45-117); ANION GAP 11 (8-16); BILIRUBIN,TOTAL 0.5 mg/dL (0.2-1.0); CALCIUM 8.7 mg/dL (8.5-10.1); CO2 21 mmol/L (21-32); GLUCOSE,RANDOM 71 mg/dL (74-106); MAGNESIUM 2.4 mg/dL (1.8-2.4); PHOSPHOROUS 3.1 mg/dL (2.5-4.9); SGOT/AST 18 U/L (15-37); SGPT/ALT 9 U/L (12-78); TOT PROT 6.5 g/dl (6.4-8.2)
[2017-03-23] MEDS ORDERED: DEXTROSE 5%-WATER - 50 ML IVPB ONE (09:41)
[2017-03-23] MEDS ORDERED: cefTRIAXone SODIUM 1 GM VIAL ONE (09:41)
[2017-03-23] MEDS: LISINOPRIL 10 MG TABLET (FP) PO SCH (10:05)
[2017-03-23] MEDS: SERTRALINE HCL 25 MG TABLET (FP) PO SCH (10:05)
[2017-03-23] MEDS: CEFTRIAXONE 1 GM in DEXTROSE 5%-WATER - 50 ML IVPB SCH (10:05)
[2017-03-23] MEDS: ASPIRIN COATED 81 MG TABLET.EC PO SCH (10:05)
[2017-03-23] MEDS: amLODIPine BESYLATE 5 MG TABLET (FP) PO SCH (10:05)
[2017-03-23] MEDS: MULTIVITAMINS (DAILY MVI) TABLET (FP) PO SCH (10:05)
--- NOTE | 2017-03-23 11:42 | CON.NEURO ---
Consult - History of Present Illness History of Present Illness: 81 year old female history of stroke with residual left sided weakness x 6 years ago. Patient has hsitory of Diabetes, Hypertension and parkinson disease. She was brought to hospital for LOC. She has two episodes. Her daughter is rn and as she checked vitals her vitals were normal. There was no hypotension or low sugar. Patient did not have any jerky motion or incointinence or post ictal confusion. Though she was slightly drowsy after second episode. 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 Cardio/Vascular: Yes: HTN Endocrine: Yes: Diabetes Mellitus - Alcohol/Substance Use Hx Alcohol Use: No - Smoking History Smoking history: Never smoked Have you smoked in the past 12 months: No - Social History Occupation: [employer] Home Medications - Allergies Allergies/Adverse Reactions: Allergies Allergy/AdvReac Type Severity Reaction Status Date / Time No Known Allergies Allergy Verified 03/22/17 12:58 - Home Medications Home Medications: Ambulatory Orders Amlodipine Besylate [Norvasc -] 5 mg PO DAILY 03/09/17 Aspirin [Aspirin EC] 81 mg PO DAILY 03/09/17 Carbidopa/Levodopa *Cr* 25/100 [Sinemet *Cr* 25/100 -] 1 combo PO TID 03/09/17 Lisinopril [Prinivil] 10 mg PO DAILY 03/09/17 Metformin HCl 500 mg PO DAILY 03/09/17 Multivitamins [Multivit ([facility] Formulary)] 1 tab PO DAILY 03/09/17 Logan-3 Fatty Acids [Logan-3] 1,000 mg PO DAILY 03/09/17 Sertraline HCl [Zoloft -] 25 mg PO DAILY 03/09/17 Simvastatin 10 mg PO HS 03/09/17 Physical Exam-Neuro Vital Signs: Vital Signs Temperature 98.2 F 03/23/17 06:00 Pulse Rate 66 03/23/17 06:00 Respiratory Rate 18 03/23/17 06:00 Blood Pressure 140/59 03/23/17 06:00 O2 Sat by Pulse Oximetry (%) 97 03/22/17 22:00 Labs: CBC, BMP 03/23/17 05:30 03/23/17 05:30 Imaging - Results Cat Scan: Report Reviewed Assessment/Plan cc two episode of passing out HPI 81 year old female history of stroke with residual left sided weakness x 6 years ago. Patient has hsitory of Diabetes, Hypertension and parkinson disease. She was brought to hospital for LOC. She has two episodes. Her daughter is rn and as she checked vitals her vitals were normal. There was no hypotension or low sugar. Patient did not have any jerky motion or incointinence or post ictal confusion. Though she was slightly drowsy after second episode. She is being treated with antibiotic for uti Past Medical History as above. PAST SURGICAL HISTORY: -Benign pelvic mass removed at [facility] -tubal ligation Social History: Smoking: never Alcohol: denies Drugs: denies Family History: non contributory Allergies No Known Allergies Allergy (Verified 03/22/17 12:58) HOME MEDICATIONS: Home Medications Medication Instructions Recorded Amlodipine Besylate [Norvasc -] 5 mg PO DAILY 03/09/17 Aspirin [Aspirin EC] 81 mg PO DAILY 03/09/17 Carbidopa/Levodopa *Cr* 25/100 1 combo PO TID 03/09/17 [Sinemet *Cr* 25/100 -] Lisinopril [Prinivil] 10 mg PO DAILY 03/09/17 Metformin HCl 500 mg PO DAILY 03/09/17 Multivitamins [Multivit ([facility] 1 tab PO DAILY 03/09/17 Formulary)] Logan-3 Fatty Acids [Logan-3] 1,000 mg PO DAILY 03/09/17 Sertraline HCl [Zoloft -] 25 mg PO DAILY 03/09/17 Simvastatin 10 mg PO HS 03/09/17 Neurological Examination Alert oriented x 2, she could not tell what date it is , she is able to make a meaningful conversation, speech and memory intact. Mild left sided facial weakness there is left sided hemiparesis ( six years ago ) no sensory loss Ct head was unremarkable Asessment-- 81 year old female history of parkinson disease, dm, htn and stroke ahs two episdoe of passing out and one episode was following with exhaution . Thereis no tonic clonic activity , incontinence or new weakness. Unlikely to be tia , LOC is not a feature of tia. Most likley syncope and a remote possibility of seizures Plan- given she is not very mobile and there is remote possibility of seizures, would hold AED fow now - recommend seizure work up including mri of brain and eeg - continue statin, aspirin and bp meidcation as before would like to follow up as outpatient mri of brain can also be done as outpatinet if she need to be discharged early also recommend cardiology consult for syncope Sabas Ware MD
--- NOTE | 2017-03-23 16:33 | PN ---
Teaching Attending Note Name of Resident: Alan Schwarz ATTENDING PHYSICIAN STATEMENT I saw and evaluated the patient. I reviewed the resident's note and discussed the case with the resident. I agree with the resident's findings and plan as documented. SUBJECTIVE:asymptomatic. does not recall the events that transpired yesterday. reports she was in normal state of health in the morning and no changes to medication. knows that she was at [facility] recently for the same issues but does not recall what she was admitted for. denies CP, SOB< fever, chills, N/V/C/D OBJECTIVE: Last Vital Signs Temp Pulse Resp BP Pulse Ox 99.2 F 62 18 157/66 95 03/23/17 14:05 03/23/17 14:05 03/23/17 14:05 03/23/17 14:05 03/23/17 10:00 General NAD A&O x2 (self and place) CV S1 S2 RRR no murmur/rub/gallop no carotid bruits Lungs CTA B/l no wheezing/rales/rhonchi Abdomen soft NT/ND Extremities no pedal edema ASSESSMENT AND PLAN: 81yo F wtih PMH CVA with residual L sided weakness, DM, HTN, and parkinsons with recent admission for syncope vs seizure and was discharged home returned with the same symptoms 1. Acute LOC- concern for seizure vs syncope. 2 episodes prior to arrival. no events here. did seem deyhdrated on labs. has already had fluids and can not check orthostatics a this time. high concern for seizure due to presenting symptoms. EEG/MRI/carotid doppler from last visit was normal. was seen by neuro here last visit and today with no other recommendations at this time but outpatient follow up. Cardio evaluated last visit and contributed to vasovagal event. will cont cardiac monitoring to r/o arrythmia. consider holter on discharge 2. LUIS- likley dehydration. now resolved 3. Acute normocytic anemia- likely some dilutional component. no signs of active bleeding. repeat CBC. transfuse for Hgb <7. 4. DM- controlled. hold oral agents. fs at time of event was normal. iss, bgm 5. HTN- controlled. cont medications 6. DVT ppx- hold heparin until repeat labs. if normal can resume 7. PT eval to asses although pt does not ambulate.
[2017-03-23 18:11] LABS: MCHC 34.3 g/dl (32.0-36.0); MEAN CELL VOLUME 87.6 fl (80-96); MEAN PLT VOLUME 7.9 fl (7.5-11.1); PLATELET COUNT 361 K/MM3 (134-434); RDW 15.1 % (11.6-15.6); WHITE BLOOD COUNT 6.6 K/mm3 (4.0-10.0)
--- NOTE | 2017-03-23 19:09 | PN ---
Physical Exam: SUBJECTIVE: Patient seen and examined at bedside. She has no new complaints today stating "i feel fine". No more episodes of syncope overnight. No dizziness , no confusion. OBJECTIVE: Vital Signs Period Temp Pulse Resp BP Sys/Lockett Pulse Ox Last 24 Hr 98 F-99.2 F 62-72 18-18 140-158/54-69 95-97 GENERAL: The patient is awake, alert, and fully oriented, in no acute distress. HEAD: Normal with no signs of trauma. EYES: extraocular movements intact, sclera anicteric, conjunctiva clear. No ptosis. NECK: Trachea midline, full range of motion, supple. LUNGS: Breath sounds equal, clear to auscultation bilaterally, no wheezes, no crackles, no accessory muscle use. HEART: Regular rate and rhythm, S1, S2 without murmur, rub or gallop. ABDOMEN: Soft, nontender, nondistended, normoactive bowel sounds, no guarding, no rebound. EXTREMITIES: 2+ pulses, warm, well-perfused, no edema. NEUROLOGICAL: Cranial nerves II through X grossly intact. Normal speech, gait not observed. PSYCH: Normal mood, normal affect. SKIN: Warm, dry, normal turgor, no rashes or lesions noted Laboratory Results - last 24 hr 03/22/17 03/23/17 03/23/17 21:15 05:22 05:30 WBC 6.9 RBC 2.75 L Hgb 7.9 L D Hct 24.0 L MCV 87.3 MCH 28.7 MCHC 32.9 RDW 14.8 Plt Count 366 MPV 7.7 Neutrophils % 52.0 Lymphocytes % 33.1 Monocytes % 9.3 Eosinophils % 4.1 Basophils % 1.5 Sodium Potassium Chloride Carbon Dioxide Anion Gap BUN Creatinine Creat Clearance w eGFR POC Glucometer 153 73 Random Glucose Calcium Phosphorus Magnesium Total Bilirubin AST ALT Alkaline Phosphatase Total Protein Albumin Blood Type Antibody Screen 03/23/17 03/23/17 03/23/17 05:30 09:30 13:16 WBC RBC Hgb Hct MCV MCH MCHC RDW Plt Count MPV Neutrophils % Lymphocytes % Monocytes % Eosinophils % Basophils % Sodium 138 Potassium 4.3 Chloride 106 Carbon Dioxide 21 Anion Gap 11 BUN 18 Creatinine 1.0 D Creat Clearance w eGFR 53.08 POC Glucometer 96 Random Glucose 71 L D Calcium 8.7 Phosphorus 3.1 Magnesium 2.4 Total Bilirubin 0.5 D AST 18 ALT 9 L D Alkaline Phosphatase 31 L Total Protein 6.5 Albumin 2.9 L Blood Type O NEGATIVE Antibody Screen Negative 03/23/17 03/23/17 15:33 16:40 WBC 6.6 RBC 2.62 L Hgb 7.9 L Hct 22.9 L MCV 87.6 MCH 30.0 MCHC 34.3 RDW 15.1 Plt Count 361 MPV 7.9 Neutrophils % Lymphocytes % Monocytes % Eosinophils % Basophils % Sodium Potassium Chloride Carbon Dioxide Anion Gap BUN Creatinine Creat Clearance w eGFR POC Glucometer 109 Random Glucose Calcium Phosphorus Magnesium Total Bilirubin AST ALT Alkaline Phosphatase Total Protein Albumin Blood Type Antibody Screen Active Medications Generic Name Dose Route Start Last Admin Trade Name Freq PRN Reason Stop Dose Admin Amlodipine Besylate 5 mg 03/23/17 10:00 03/23/17 10:05 Norvasc - PO 5 mg DAILY SUPA Administration Aspirin 81 mg 03/23/17 10:00 03/23/17 10:05 Ecotrin - PO 81 mg DAILY SUPA Administration Atorvastatin Calcium 10 mg 03/22/17 22:00 03/22/17 21:49 Lipitor - PO 10 mg HS SUPA Administration Carbidopa/Levodopa 1 each 03/22/17 22:00 03/23/17 15:00 Sinemet 25/100 - PO 1 each TID SUPA Administration Heparin Sodium (Porcine) 5,000 unit 03/22/17 22:00 03/23/17 15:24 Heparin - SQ Not Given TID SUPA Sodium Chloride 1,000 mls @ 75 mls/hr 03/22/17 17:00 03/22/17 17:23 Normal Saline - IV 75 mls/hr ASDIR SUPA Administration Ceftriaxone Sodium 1 gm/ 50 mls @ 100 mls/hr 03/23/17 10:00 03/23/17 10:05 Dextrose IVPB 100 mls/hr DAILY SUPA Administration Insulin Aspart 1 vial 03/22/17 22:00 03/23/17 16:22 Novolog Vial Sliding Scale - SQ Not Given ACHS SUPA Protocol Lisinopril 10 mg 03/23/17 10:00 03/23/17 10:05 Prinivil PO 10 mg DAILY SUPA Administration Multivitamins/Minerals/Vitamin C 1 tab 03/23/17 10:00 03/23/17 10:05 Tab-A-Vit - PO 1 tab DAILY SUPA Administration Non-Formulary Medication 1,000 mg 03/23/17 10:00 [place]-3 Fatty Acids [[place]ame[place]-3] PO DAILY SUPA Sertraline HCl 25 mg 03/23/17 10:00 03/23/17 10:05 Zoloft - PO 25 mg DAILY SUPA Administration ASSESSMENT/PLAN: The patient is an 81 yo f w/ 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 #Syncopal episodes likley 2/2 UTI vs cardiac origin vs seizure activity -NS @ 75 -carotid dopplers show moderate atherosclerotic disease without stenosis -CT head shows chronic ERICA infarct on the right and a right sided old thalamic infarct -Rocephin 1gm daily IV -Urine cx showing proteus species; will await final CX -neurology consult -cardio workup -EEG to rule out seizure activity -MRI to rule out repeat stroke -echo # Diabetes -BGM ACHS -ISS ACHS #parkinsons -continue with home sinemet 25/100 TID #HTN- controlled -home lisinopril 10mg daily -home norvasc 5mg PO daily #HLD -home liptor 10 Mg HS #FEN -NS @ 75 -monitor lytes -diabetic diet #prophylaxsis -Heparin SQ TID -no gi prophy indicated -Home ASA 81mg -PT consult #dispo -admit to tele Problem List - Problems (1) Diabetes Code(s): E11.9 - TYPE 2 DIABETES MELLITUS WITHOUT COMPLICATIONS (2) HTN (hypertension) Code(s): I10 - ESSENTIAL (PRIMARY) HYPERTENSION (3) Parkinson disease Code(s): G20 - PARKINSON'S DISEASE (4) Syncope Code(s): R55 - SYNCOPE AND COLLAPSE Qualifiers: Syncope type: unspecified Qualified Code(s): R55 - Syncope and collapse (5) UTI (urinary tract infection) Code(s): N39.0 - URINARY TRACT INFECTION, SITE NOT SPECIFIED Qualifiers: Urinary tract infection type: acute cystitis Hematuria presence: without hematuria Qualified Code(s): N30.00 - Acute cystitis without hematuria Visit type - Emergency Visit Emergency Visit: Yes ED Registration Date: 03/22/17 Care time: The patient presented to the Emergency Department on the above date and was hospitalized for further evaluation of their emergent condition. - New Patient This patient is new to me today: No - Critical Care Critical Care patient: No
[2017-03-23] MEDS: SODIUM CHLORIDE 1,000 ML IV SCH (22:02)
[2017-03-23] MEDS: ATORVASTATIN CA 10 MG TABLET (FP) PO SCH (22:02)
[2017-03-24] MEDS: CARBIDOPA/LEVODOPA 25/100 TABLET (FP) PO SCH ×3 (06:25→22:51)
[2017-03-24] MEDS: HEPARIN NA (PORCINE) 5,000 UNITS/ML 1ML VIAL SQ SCH ×3 (06:25→22:52)
[2017-03-24] MEDS: INSULIN SLIDING SCALE (NOVOLOG) 1 VIAL SQ SCH ×4 (06:26→22:52)
[2017-03-24 07:37] LABS: MCH 28.9 pg (25.7-33.7); MCHC 32.8 g/dl (32.0-36.0); MEAN CELL VOLUME 88.1 fl (80-96); MEAN PLT VOLUME 7.3 fl (7.5-11.1); RDW 15.5 % (11.6-15.6); WHITE BLOOD COUNT 6.1 K/mm3 (4.0-10.0)
[2017-03-24 08:31] LABS: ALBUMIN 2.8 g/dl (3.4-5.0); ALK PHOS 29 U/L (45-117); ANION GAP 6 (8-16); BILIRUBIN,TOTAL 0.3 mg/dL (0.2-1.0); CALCIUM 8.5 mg/dL (8.5-10.1); CO2 24 mmol/L (21-32); GLUCOSE,RANDOM 76 mg/dL (74-106); SGOT/AST 19 U/L (15-37); SGPT/ALT 7 U/L (12-78); TOT PROT 6.5 g/dl (6.4-8.2)
[2017-03-24 09:02] LABS: PLATELET COUNT 350 K/MM3 (134-434); PLATELET ESTIMATE ADEQUATE (NORMAL)
[2017-03-24] MEDS ORDERED: DEXTROSE 5%-WATER - 50 ML IVPB ONE (09:46)
[2017-03-24] MEDS ORDERED: cefTRIAXone SODIUM 1 GM VIAL ONE (09:46)
--- NOTE | 2017-03-24 10:02 | PN ---
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 (short form) - Note 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: 81 year old female history of stroke with residual left sided weakness x 6 years ago. Patient has hsitory of Diabetes, Hypertension and parkinson disease. She was brought to hospital for LOC. She has two episodes. Her daughter is RNand as she checked vitals her vitals were normal. There was no hypotension or low sugar. Patient did not have any jerky motion or incointinence or post ictal confusion. Though she was slightly drowsy after second episode. Her eeg was normal and ct head was unremarkable no new symptoms overnight Neurological Examination Alert oriented x 2, she could not tell what date it is , she is able to make a meaningful conversation, speech and memory intact. Mild left sided facial weakness there is left sided hemiparesis ( six years ago ) no sensory loss Neuro exam is unchanged since yesterday Ct head was unremarkable Asessment-- 81 year old female history of parkinson disease, dm, htn and stroke ahs two episdoe of passing out and one episode was following with exhaution . Thereis no tonic clonic activity , incontinence or new weakness. Less likley to be seizures, eeg was unremarkable once again. Plan- no further work up needed at this time. - continue statin, aspirin and bp Medication as before. would follow up outpatient Hold antiepileptic Medication ( AED) for now Sabas Ware MD
[2017-03-24] MEDS: amLODIPine BESYLATE 5 MG TABLET (FP) PO SCH (10:07)
[2017-03-24] MEDS: ASPIRIN COATED 81 MG TABLET.EC PO SCH (10:07)
[2017-03-24] MEDS: CEFTRIAXONE 1 GM in DEXTROSE 5%-WATER - 50 ML IVPB SCH (10:07)
[2017-03-24] MEDS: LISINOPRIL 10 MG TABLET (FP) PO SCH (10:07)
[2017-03-24] MEDS: SERTRALINE HCL 25 MG TABLET (FP) PO SCH (10:08)
[2017-03-24] MEDS: MULTIVITAMINS (DAILY MVI) TABLET (FP) PO SCH (10:08)
--- NOTE | 2017-03-24 17:36 | PN ---
Teaching Attending Note Name of Resident: Alan Schwarz ATTENDING PHYSICIAN STATEMENT I saw and evaluated the patient. I reviewed the resident's note and discussed the case with the resident. I agree with the resident's findings and plan as documented. SUBJECTIVE: Patient is sitting in chair. She denies chest pain, palpitations, SOB, dizziness. OBJECTIVE: Vital Signs Period Temp Pulse Resp BP Sys/Lockett Pulse Ox Last 24 Hr 97.8 F-99 F 55-68 18-20 126-167/57-72 95-95 HEART: S1S2, RRR LUNGS: Clear ABDOMEN: Soft, non-tender, non-distended, normal BS EXTREMITIES: No edema Current Medications Generic Name Dose Route Start Last Admin Trade Name Freq PRN Reason Stop Dose Admin Amlodipine Besylate 5 mg 03/23/17 10:00 03/24/17 10:07 Norvasc - PO 5 mg DAILY SUPA Administration Aspirin 81 mg 03/23/17 10:00 03/24/17 10:07 Ecotrin - PO 81 mg DAILY SUPA Administration Atorvastatin Calcium 10 mg 03/22/17 22:00 03/23/17 22:02 Lipitor - PO 10 mg HS SUPA Administration Carbidopa/Levodopa 1 each 03/22/17 22:00 03/24/17 14:25 Sinemet 25/100 - PO 1 each TID SUPA Administration Heparin Sodium (Porcine) 5,000 unit 03/22/17 22:00 03/24/17 14:24 Heparin - SQ 5,000 unit TID SUPA Administration Ceftriaxone Sodium 1 gm/ 50 mls @ 100 mls/hr 03/23/17 10:00 03/24/17 10:07 Dextrose IVPB 100 mls/hr DAILY SUPA Administration Insulin Aspart 1 vial 03/22/17 22:00 03/24/17 12:08 Novolog Vial Sliding Scale - SQ Not Given ACHS SUPA Protocol Lisinopril 10 mg 03/23/17 10:00 03/24/17 10:07 Prinivil PO 10 mg DAILY SUPA Administration Multivitamins/Minerals/Vitamin C 1 tab 03/23/17 10:00 03/24/17 10:08 Tab-A-Vit - PO 1 tab DAILY SUPA Administration Non-Formulary Medication 1,000 mg 03/23/17 10:00 [place]-3 Fatty Acids [[place]-3] PO DAILY SUPA Sertraline HCl 25 mg 03/23/17 10:00 03/24/17 10:08 Zoloft - PO 25 mg DAILY SUPA Administration ASSESSMENT AND PLAN: This is an 81 year old woman wtih a history of CVA, type 2 DM, HTN, hyperlipidemia, Parkinson disease who presented to the ER after losing consciousness x 2. 1. Syncope - Possibly vasovagal, orthostatic hypotension - No evidence of arrhythmia - Seizure unlikely 2. UTI - Continue Rocephin - Follow-up urine culture 3. Acute kidney injury secondary to dehydration - Resolved 4. Acute anemia on chronic anemia - Likely dilutional - Hemoglobin stable - No evidence of bleeding 5. Type 2 DM - Continue Novolog sliding scale 6. HTN - Continue Norvasc, Lisinopril 7. History of CVA - Continue aspirin, Lipitor 8. Parkinson disease - Continue Sinemet 9. Hyperlipidemia - Continue Lipitor
[2017-03-24] MEDS ORDERED: FLU VACCINE QUAD 60 MCG/0.5 ML (MDV 17-18) IM ONE (20:00)
--- NOTE | 2017-03-24 20:04 | EKG ---
Test Reason : Blood Pressure : / mmHG Vent. Rate : 066 BPM Atrial Rate : 066 BPM P-R Int : 182 ms QRS Dur : 074 ms QT Int : 418 ms P-R-T Axes : -02 -07 052 degrees QTc Int : 438 ms NORMAL SINUS RHYTHM NONSPECIFIC T WAVE ABNORMALITIES BORDERLINE ECG WHEN COMPARED WITH ECG OF 09-MAR-2017 10:58, NO SIGNIFICANT CHANGE WAS FOUND REPEAT EKG IF CLINICALLY INDICATED Confirmed by YOVANI PINK MD ([id number]) on 03/24/2017 8:03:36 PM Referred By: Confirmed By:YOVANI PINK MD
--- NOTE | 2017-03-24 21:04 | PN ---
Physical Exam: SUBJECTIVE: Patient seen and examined at bedside. When asked how she was feeling today, the patient states "blessed". no new complaints. OBJECTIVE: Vital Signs Period Temp Pulse Resp BP Sys/Lockett Pulse Ox Last 24 Hr 97.8 F-99 F 55-68 18-20 126-167/57-72 95-95 GENERAL: The patient is awake, alert, and fully oriented, in no acute distress. HEAD: Normal with no signs of trauma. EYES: extraocular movements intact, sclera anicteric, conjunctiva clear. No ptosis. NECK: Trachea midline, full range of motion, supple. LUNGS: Breath sounds equal, clear to auscultation bilaterally, no wheezes, no crackles, no accessory muscle use. HEART: Regular rate and rhythm, S1, S2 without murmur, rub or gallop. ABDOMEN: Soft, nontender, nondistended, normoactive bowel sounds, no guarding, no rebound. EXTREMITIES: 2+ pulses, warm, well-perfused, no edema. NEUROLOGICAL: Cranial nerves II through X grossly intact. Normal speech, gait not observed. PSYCH: Normal mood, normal affect. SKIN: Warm, dry, normal turgor, no rashes or lesions noted Laboratory Results - last 24 hr 03/23/17 03/24/17 03/24/17 22:14 05:28 05:28 WBC 6.1 RBC 2.71 L Hgb 7.8 L Hct 23.8 L MCV 88.1 MCH 28.9 MCHC 32.8 RDW 15.5 Plt Count 350 MPV 7.3 L Platelet Estimate Adequate Platelet Comment No clumping noted Sodium 138 Potassium 4.4 Chloride 108 H Carbon Dioxide 24 Anion Gap 6 L BUN 15 Creatinine 1.0 Creat Clearance w eGFR 53.08 POC Glucometer 101 Random Glucose 76 Calcium 8.5 Total Bilirubin 0.3 D AST 19 ALT 7 L D Alkaline Phosphatase 29 L Total Protein 6.5 Albumin 2.8 L 03/24/17 03/24/17 03/24/17 06:24 11:47 17:18 WBC RBC Hgb Hct MCV MCH MCHC RDW Plt Count MPV Platelet Estimate Platelet Comment Sodium Potassium Chloride Carbon Dioxide Anion Gap BUN Creatinine Creat Clearance w eGFR POC Glucometer 81 108 121 Random Glucose Calcium Total Bilirubin AST ALT Alkaline Phosphatase Total Protein Albumin Active Medications Generic Name Dose Route Start Last Admin Trade Name Freq PRN Reason Stop Dose Admin Amlodipine Besylate 5 mg 03/23/17 10:00 03/24/17 10:07 Norvasc - PO 5 mg DAILY SUPA Administration Aspirin 81 mg 03/23/17 10:00 03/24/17 10:07 Ecotrin - PO 81 mg DAILY SUPA Administration Atorvastatin Calcium 10 mg 03/22/17 22:00 03/23/17 22:02 Lipitor - PO 10 mg HS SUPA Administration Carbidopa/Levodopa 1 each 03/22/17 22:00 03/24/17 14:25 Sinemet 25/100 - PO 1 each TID SUPA Administration Heparin Sodium (Porcine) 5,000 unit 03/22/17 22:00 03/24/17 14:24 Heparin - SQ 5,000 unit TID SUPA Administration Ceftriaxone Sodium 1 gm/ 50 mls @ 100 mls/hr 03/23/17 10:00 03/24/17 10:07 Dextrose IVPB 100 mls/hr DAILY SUPA Administration Insulin Aspart 1 vial 03/22/17 22:00 03/24/17 17:59 Novolog Vial Sliding Scale - SQ Not Given ACHS [facility] Protocol Lisinopril 10 mg 03/23/17 10:00 03/24/17 10:07 Prinivil PO 10 mg DAILY SUPA Administration Multivitamins/Minerals/Vitamin C 1 tab 03/23/17 10:00 03/24/17 10:08 Tab-A-Vit - PO 1 tab DAILY SUPA Administration Non-Formulary Medication 1,000 mg 03/23/17 10:00 [place]-3 Fatty Acids [[place]-3] PO DAILY SUPA Sertraline HCl 25 mg 03/23/17 10:00 03/24/17 10:08 Zoloft - PO 25 mg DAILY SUPA Administration ASSESSMENT/PLAN: The patient is an 81 yo f w/ 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 #Syncopal episodes likley 2/2 UTI vs cardiac origin vs seizure activity -carotid dopplers show moderate atherosclerotic disease without stenosis -CT head shows chronic ERICA infarct on the right and a right sided old thalamic infarct -Rocephin 1gm daily IV -Urine cx showing proteus species and pansensitive pseudomonas aueriginosa -neurology consult -syncope unlikely to be secondary to seizure activity -EEG negative # Diabetes -BGM ACHS -ISS ACHS #parkinsons -continue with home sinemet 25/100 TID #HTN- controlled -home lisinopril 10mg daily -home norvasc 5mg PO daily #HLD -home liptor 10 Mg HS #FEN -no indication for fluids -monitor lytes -diabetic diet #prophylaxsis -Heparin SQ TID -no gi prophy indicated -Home ASA 81mg -PT consult #dispo -stable for transfer to med surg floor. Problem List - Problems (1) Diabetes Code(s): E11.9 - TYPE 2 DIABETES MELLITUS WITHOUT COMPLICATIONS (2) HTN (hypertension) Code(s): I10 - ESSENTIAL (PRIMARY) HYPERTENSION (3) Parkinson disease Code(s): G20 - PARKINSON'S DISEASE (4) Syncope Code(s): R55 - SYNCOPE AND COLLAPSE Qualifiers: Syncope type: unspecified Qualified Code(s): R55 - Syncope and collapse (5) UTI (urinary tract infection) Code(s): N39.0 - URINARY TRACT INFECTION, SITE NOT SPECIFIED Qualifiers: Urinary tract infection type: acute cystitis Hematuria presence: without hematuria Qualified Code(s): N30.00 - Acute cystitis without hematuria Visit type - Emergency Visit Emergency Visit: Yes ED Registration Date: 03/22/17 Care time: The patient presented to the Emergency Department on the above date and was hospitalized for further evaluation of their emergent condition. - New Patient This patient is new to me today: No - Critical Care Critical Care patient: No
[2017-03-24] MEDS: ATORVASTATIN CA 10 MG TABLET (FP) PO SCH (22:51)
[2017-03-25] MEDS ORDERED: FLU VACCINE QUAD 60 MCG/0.5 ML (MDV 17-18) IM ONE (06:00)
[2017-03-25] MEDS: CARBIDOPA/LEVODOPA 25/100 TABLET (FP) PO SCH ×3 (06:10→22:49)
[2017-03-25] MEDS: HEPARIN NA (PORCINE) 5,000 UNITS/ML 1ML VIAL SQ SCH ×3 (06:11→22:50)
[2017-03-25] MEDS: INSULIN SLIDING SCALE (NOVOLOG) 1 VIAL SQ SCH ×4 (07:43→22:49)
[2017-03-25] MEDS ORDERED: LEVOFLOXACIN 500 MG IVPB 100 ML IVPB ONE (10:00)
[2017-03-25] MEDS: MULTIVITAMINS (DAILY MVI) TABLET (FP) PO SCH (10:27)
[2017-03-25] MEDS: ASPIRIN COATED 81 MG TABLET.EC PO SCH (10:27)
[2017-03-25] MEDS: LISINOPRIL 10 MG TABLET (FP) PO SCH (10:27)
[2017-03-25] MEDS: amLODIPine BESYLATE 5 MG TABLET (FP) PO SCH (10:27)
[2017-03-25] MEDS: SERTRALINE HCL 25 MG TABLET (FP) PO SCH (10:27)
--- NOTE | 2017-03-25 10:58 | PN ---
Physical Exam: SUBJECTIVE: Patient seen and examined at bedside. Patient feeling better today, no new complaints. OBJECTIVE: Vital Signs Period Temp Pulse Resp BP Sys/Lockett Pulse Ox Last 24 Hr 98 F-99.2 F 50-60 18-20 143-167/57-66 95 GENERAL: The patient is awake, alert, and fully oriented, in no acute distress. HEAD: Normal with no signs of trauma. EYES: extraocular movements intact, sclera anicteric, conjunctiva clear. No ptosis. NECK: Trachea midline, full range of motion, supple. LUNGS: Breath sounds equal, clear to auscultation bilaterally, no wheezes, no crackles, no accessory muscle use. HEART: Regular rate and rhythm, S1, S2 without murmur, rub or gallop. ABDOMEN: Soft, nontender, nondistended, normoactive bowel sounds, no guarding, no rebound, no hepatosplenomegaly, no masses. EXTREMITIES: 2+ pulses, warm, well-perfused, no edema. NEUROLOGICAL: Cranial nerves II through X grossly intact. Normal speech, gait not observed. PSYCH: Normal mood, normal affect. SKIN: Warm, dry, normal turgor, no rashes or lesions noted Laboratory Results - last 24 hr 03/24/17 03/24/17 03/24/17 11:47 17:18 22:50 POC Glucometer 108 121 133 03/25/17 05:37 POC Glucometer 77 Active Medications Generic Name Dose Route Start Last Admin Trade Name José Manuelq PRN Reason Stop Dose Admin Amlodipine Besylate 5 mg 03/23/17 10:00 03/25/17 10:27 Norvasc - PO 5 mg DAILY SUPA Administration Aspirin 81 mg 03/23/17 10:00 03/25/17 10:27 Ecotrin - PO 81 mg DAILY SUPA Administration Atorvastatin Calcium 10 mg 03/22/17 22:00 03/24/17 22:51 Lipitor - PO 10 mg HS SUPA Administration Carbidopa/Levodopa 1 each 03/22/17 22:00 03/25/17 06:10 Sinemet 25/100 - PO 1 each TID SUPA Administration Heparin Sodium (Porcine) 5,000 unit 03/22/17 22:00 03/25/17 06:11 Heparin - SQ 5,000 unit TID SUPA Administration Levofloxacin 100 mls @ 100 mls/hr 03/25/17 10:00 03/25/17 10:27 Levaquin 500 Mg Premixed Ivpb - IVPB 03/25/17 10:59 100 mls/hr ONCE ONE Administration Insulin Aspart 1 vial 03/22/17 22:00 03/25/17 07:43 Novolog Vial Sliding Scale - SQ Not Given ACHS SUPA Protocol Lisinopril 10 mg 03/23/17 10:00 03/25/17 10:27 Prinivil PO 10 mg DAILY SUPA Administration Multivitamins/Minerals/Vitamin C 1 tab 03/23/17 10:00 03/25/17 10:27 Tab-A-Vit - PO 1 tab DAILY SUPA Administration Non-Formulary Medication 1,000 mg 03/23/17 10:00 [place]-3 Fatty Acids [[place]ial[place]-3] PO DAILY SUPA Sertraline HCl 25 mg 03/23/17 10:00 03/25/17 10:27 Zoloft - PO 25 mg DAILY SUPA Administration ASSESSMENT/PLAN: The patient is an 81 yo f w/ 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 #Syncopal episodes likley 2/2 UTI vs cardiac origin vs seizure activity -carotid dopplers show moderate atherosclerotic disease without stenosis -CT head shows chronic ERICA infarct on the right and a right sided old thalamic infarct -Rocephin 1gm daily IV changed to levaquin 500 IV for pseudomonal coverage -Urine cx showing proteus species and pansensitive pseudomonas aueriginosa -neurology consult -syncope unlikely to be secondary to seizure activity -EEG negative # Diabetes -BGM ACHS -ISS ACHS #parkinsons -continue with home sinemet 25/100 TID #HTN- controlled -home lisinopril 10mg daily -home norvasc 5mg PO daily #HLD -home liptor 10 Mg HS #FEN -no indication for fluids -monitor lytes -diabetic diet #prophylaxsis -Heparin SQ TID -no gi prophy indicated -Home ASA 81mg -PT consult #dispo -awaiting correction placement. Problem List - Problems (1) Diabetes Code(s): E11.9 - TYPE 2 DIABETES MELLITUS WITHOUT COMPLICATIONS (2) HTN (hypertension) Code(s): I10 - ESSENTIAL (PRIMARY) HYPERTENSION (3) Parkinson disease Code(s): G20 - PARKINSON'S DISEASE (4) Syncope Code(s): R55 - SYNCOPE AND COLLAPSE Qualifiers: Syncope type: unspecified Qualified Code(s): R55 - Syncope and collapse (5) UTI (urinary tract infection) Code(s): N39.0 - URINARY TRACT INFECTION, SITE NOT SPECIFIED Qualifiers: Urinary tract infection type: acute cystitis Hematuria presence: without hematuria Qualified Code(s): N30.00 - Acute cystitis without hematuria Visit type - Emergency Visit Emergency Visit: Yes ED Registration Date: 03/22/17 Care time: The patient presented to the Emergency Department on the above date and was hospitalized for further evaluation of their emergent condition. - New Patient This patient is new to me today: No - Critical Care Critical Care patient: No
[2017-03-25] MEDS: POLYETHYLENE GLYCOL 3350 119 GM BTL PO SCH (15:24)
[2017-03-25] MEDS: OMEGA-3 ACID ETHYL ESTERS (FATTY-ACIDS) 1 GM CAPSULE (FP) PO SCH (17:24)
--- NOTE | 2017-03-25 17:40 | PN ---
Teaching Attending Note Name of Resident: Alan Schwarz ATTENDING PHYSICIAN STATEMENT I saw and evaluated the patient. I reviewed the resident's note and discussed the case with the resident. I agree with the resident's findings and plan as documented. SUBJECTIVE: OBJECTIVE: Vital Signs Period Temp Pulse Resp BP Sys/Lockett Pulse Ox Last 24 Hr 98 F-99.2 F 50-64 18-20 129-160/51-66 95-96 HEART: S1S2, RRR LUNGS: Clear ABDOMEN: Soft, non-tender, non-distended, normal BS EXTREMITIES: No edema Current Medications Generic Name Dose Route Start Last Admin Trade Name Freq PRN Reason Stop Dose Admin Amlodipine Besylate 5 mg 03/23/17 10:00 03/25/17 10:27 Norvasc - PO 5 mg DAILY SUPA Administration Aspirin 81 mg 03/23/17 10:00 03/25/17 10:27 Ecotrin - PO 81 mg DAILY SUPA Administration Atorvastatin Calcium 10 mg 03/22/17 22:00 03/24/17 22:51 Lipitor - PO 10 mg HS SUPA Administration Carbidopa/Levodopa 1 each 03/22/17 22:00 03/25/17 13:55 Sinemet 25/100 - PO 1 each TID SUPA Administration Heparin Sodium (Porcine) 5,000 unit 03/22/17 22:00 03/25/17 13:55 Heparin - SQ 5,000 unit TID SUPA Administration Insulin Aspart 1 vial 03/22/17 22:00 03/25/17 17:26 Novolog Vial Sliding Scale - SQ Not Given ACHS SUPA Protocol Lisinopril 10 mg 03/23/17 10:00 03/25/17 10:27 Prinivil PO 10 mg DAILY SUPA Administration Multivitamins/Minerals/Vitamin C 1 tab 03/23/17 10:00 03/25/17 10:27 Tab-A-Vit - PO 1 tab DAILY SUPA Administration [id number] Ethyl Esters 1 gm 03/25/17 15:15 03/25/17 17:24 Lovaza - PO 1 gm DAILY SUPA Administration Polyethylene Glycol 17 gm 03/25/17 15:15 03/25/17 15:24 Miralax (For Daily Use) - PO 17 gm DAILY SUPA Administration Sertraline HCl 25 mg 03/23/17 10:00 03/25/17 10:27 Zoloft - PO 25 mg DAILY SUPA Administration ASSESSMENT AND PLAN: This is an 81 year old woman wtih a history of CVA, type 2 DM, HTN, hyperlipidemia, Parkinson disease who presented to the ER after losing consciousness x 2. 1. Syncope - Possibly vasovagal, orthostatic hypotension - No evidence of arrhythmia - Seizure unlikely 2. UTI - Continue Rocephin - Follow-up urine culture 3. Acute kidney injury secondary to dehydration - Resolved 4. Acute anemia on chronic anemia - Likely dilutional - Hemoglobin stable - No evidence of bleeding 5. Type 2 DM - Continue Novolog sliding scale 6. HTN - Continue Norvasc, Lisinopril 7. History of CVA - Continue aspirin, Lipitor 8. Parkinson disease - Continue Sinemet 9. Hyperlipidemia - Continue Lipitor, Lovaza 10. Disposition - Continue PT - Plan for subacute rehab
[2017-03-25] MEDS: ATORVASTATIN CA 10 MG TABLET (FP) PO SCH (22:49)
[2017-03-26] MEDS: CARBIDOPA/LEVODOPA 25/100 TABLET (FP) PO SCH ×3 (06:53→22:14)
[2017-03-26] MEDS: INSULIN SLIDING SCALE (NOVOLOG) 1 VIAL SQ SCH ×4 (06:53→22:14)
[2017-03-26] MEDS: HEPARIN NA (PORCINE) 5,000 UNITS/ML 1ML VIAL SQ SCH ×3 (06:53→22:17)
[2017-03-26] MEDS: SERTRALINE HCL 25 MG TABLET (FP) PO SCH (10:02)
[2017-03-26] MEDS: amLODIPine BESYLATE 5 MG TABLET (FP) PO SCH (10:02)
[2017-03-26] MEDS: ASPIRIN COATED 81 MG TABLET.EC PO SCH (10:02)
[2017-03-26] MEDS: MULTIVITAMINS (DAILY MVI) TABLET (FP) PO SCH (10:02)
[2017-03-26] MEDS: LISINOPRIL 10 MG TABLET (FP) PO SCH (10:02)
[2017-03-26] MEDS: POLYETHYLENE GLYCOL 3350 119 GM BTL PO SCH (10:02)
[2017-03-26] MEDS: OMEGA-3 ACID ETHYL ESTERS (FATTY-ACIDS) 1 GM CAPSULE (FP) PO SCH (10:02)
--- NOTE | 2017-03-26 15:49 | PN ---
Teaching Attending Note Name of Resident: Alan Schwarz ATTENDING PHYSICIAN STATEMENT I saw and evaluated the patient. I reviewed the resident's note and discussed the case with the resident. I agree with the resident's findings and plan as documented. SUBJECTIVE: Patient has no complaints. OBJECTIVE: Vital Signs Period Temp Pulse Resp BP Sys/Lockett Pulse Ox Last 24 Hr 98 F-98.7 F 58-64 18-20 128-148/58-74 96-96 HEART: S1S2, RRR LUNGS: Clear ABDOMEN: Soft, non-tender, non-distended, normal BS EXTREMITIES: No edema Current Medications Generic Name Dose Route Start Last Admin Trade Name Freq PRN Reason Stop Dose Admin Amlodipine Besylate 5 mg 03/23/17 10:00 03/26/17 10:02 Norvasc - PO 5 mg DAILY SUPA Administration Aspirin 81 mg 03/23/17 10:00 03/26/17 10:02 Ecotrin - PO 81 mg DAILY SUPA Administration Atorvastatin Calcium 10 mg 03/22/17 22:00 03/25/17 22:49 Lipitor - PO 10 mg HS SUPA Administration Carbidopa/Levodopa 1 each 03/22/17 22:00 03/26/17 14:51 Sinemet 25/100 - PO 1 each TID SUPA Administration Heparin Sodium (Porcine) 5,000 unit 03/22/17 22:00 03/26/17 14:51 Heparin - SQ 5,000 unit TID SUPA Administration Insulin Aspart 1 vial 03/22/17 22:00 03/26/17 11:56 Novolog Vial Sliding Scale - SQ Not Given ACHS SUPA Protocol Lisinopril 10 mg 03/23/17 10:00 03/26/17 10:02 Prinivil PO 10 mg DAILY SUPA Administration Multivitamins/Minerals/Vitamin C 1 tab 03/23/17 10:00 03/26/17 10:02 Tab-A-Vit - PO 1 tab DAILY SUPA Administration Nnhfb-4-Apmn Ethyl Esters 1 gm 03/25/17 15:15 03/26/17 10:02 Lovaza - PO 1 gm DAILY SUPA Administration Polyethylene Glycol 17 gm 03/25/17 15:15 03/26/17 10:02 Miralax (For Daily Use) - PO 17 gm DAILY SUPA Administration Sertraline HCl 25 mg 03/23/17 10:00 03/26/17 10:02 Zoloft - PO 25 mg DAILY SUPA Administration ASSESSMENT AND PLAN: This is an 81 year old woman with a history of CVA, type 2 DM, HTN, hyperlipidemia, Parkinson disease who presented to the ER after losing consciousness x 2. 1. Syncope - Possibly vasovagal, orthostatic hypotension - No evidence of arrhythmia - Seizure unlikely 2. Pseudomonas UTI - Levaquin started 3. Acute kidney injury secondary to dehydration - Resolved 4. Acute anemia on chronic anemia - Likely dilutional - Hemoglobin stable - No evidence of bleeding 5. Type 2 DM - Continue Novolog sliding scale 6. HTN - Continue Norvasc, Lisinopril 7. History of CVA - Continue aspirin, Lipitor 8. Parkinson disease - Continue Sinemet 9. Hyperlipidemia - Continue Lipitor, Lovaza 10. Disposition - Continue PT - Plan for subacute rehab - awaiting authorization
[2017-03-26] MEDS: LEVOFLOXACIN 500 MG IVPB 100 ML IVPB SCH (17:10)
--- NOTE | 2017-03-26 21:23 | PN ---
Physical Exam: SUBJECTIVE: Patient seen and examined at bedside. No new complaints. No events overnight. OBJECTIVE: Vital Signs Period Temp Pulse Resp BP Sys/Lockett Pulse Ox Last 24 Hr 98 F-98.7 F 60-70 18-20 123-148/40-74 96-100 GENERAL: The patient is awake, alert, and fully oriented, in no acute distress. HEAD: Normal with no signs of trauma. EYES: extraocular movements intact, sclera anicteric, conjunctiva clear. No ptosis. NECK: Trachea midline, full range of motion, supple. LUNGS: Breath sounds equal, clear to auscultation bilaterally, no wheezes, no crackles, no accessory muscle use. HEART: Regular rate and rhythm, S1, S2 without murmur, rub or gallop. ABDOMEN: Soft, nontender, nondistended, normoactive bowel sounds, no guarding, no rebound, no hepatosplenomegaly, no masses. EXTREMITIES: 2+ pulses, warm, well-perfused, no edema. NEUROLOGICAL: Cranial nerves II through X grossly intact. Normal speech, gait not observed. PSYCH: Normal mood, normal affect. SKIN: Warm, dry, normal turgor, no rashes or lesions noted Laboratory Results - last 24 hr 03/25/17 03/26/17 03/26/17 22:48 06:04 11:40 POC Glucometer 125 91 342 03/26/17 03/26/17 11:52 17:04 POC Glucometer 86 99 Active Medications Generic Name Dose Route Start Last Admin Trade Name José Manuelq PRN Reason Stop Dose Admin Amlodipine Besylate 5 mg 03/23/17 10:00 03/26/17 10:02 Norvasc - PO 5 mg DAILY SUPA Administration Aspirin 81 mg 03/23/17 10:03/26/17 10:02 Ecotrin - PO 81 mg DAILY SUPA Administration Atorvastatin Calcium 10 mg 03/22/17 22:00 03/25/17 22:49 Lipitor - PO 10 mg HS SUPA Administration Carbidopa/Levodopa 1 each 03/22/17 22:00 03/26/17 14:51 Sinemet 25/100 - PO 1 each TID SUPA Administration Heparin Sodium (Porcine) 5,000 unit 03/22/17 22:00 03/26/17 14:51 Heparin - SQ 5,000 unit TID SUPA Administration Levofloxacin 100 mls @ 100 mls/hr 03/26/17 16:02 03/26/17 17:10 Levaquin 500 Mg Premixed Ivpb - IVPB 100 mls/hr DAILY SUPA Administration Insulin Aspart 1 vial 03/22/17 22:00 03/26/17 17:09 Novolog Vial Sliding Scale - SQ Not Given ACHS SUPA Protocol Lisinopril 10 mg 03/23/17 10:00 03/26/17 10:02 Prinivil PO 10 mg DAILY SUAP Administration Multivitamins/Minerals/Vitamin C 1 tab 03/23/17 10:00 03/26/17 10:02 Tab-A-Vit - PO 1 tab DAILY SUPA Administration Mjxgv-1-Byyb Ethyl Esters 1 gm 03/25/17 15:15 03/26/17 10:02 Lovaza - PO 1 gm DAILY SUPA Administration Polyethylene Glycol 17 gm 03/25/17 15:15 03/26/17 10:02 Miralax (For Daily Use) - PO 17 gm DAILY SUPA Administration Sertraline HCl 25 mg 03/23/17 10:00 03/26/17 10:02 Zoloft - PO 25 mg DAILY SUPA Administration ASSESSMENT/PLAN: The patient is an 81 yo f w/ 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 #Syncopal episodes likley 2/2 UTI vs cardiac origin vs seizure activity -carotid dopplers show moderate atherosclerotic disease without stenosis -CT head shows chronic ERICA infarct on the right and a right sided old thalamic infarct -levaquin 500 IV for pseudomonal coverage (day 2) -Urine cx showing proteus species and pansensitive pseudomonas aueriginosa -neurology consult -syncope unlikely to be secondary to seizure activity -EEG negative # Diabetes -BGM ACHS -ISS ACHS #parkinsons -continue with home sinemet 25/100 TID #HTN- controlled -home lisinopril 10mg daily -home norvasc 5mg PO daily #HLD -home liptor 10 Mg HS #FEN -no indication for fluids -monitor lytes -diabetic diet #prophylaxsis -Heparin SQ TID -no gi prophy indicated -Home ASA 81mg -PT consult #dispo -awaiting shelter placement. Problem List - Problems (1) Diabetes Code(s): E11.9 - TYPE 2 DIABETES MELLITUS WITHOUT COMPLICATIONS (2) HTN (hypertension) Code(s): I10 - ESSENTIAL (PRIMARY) HYPERTENSION (3) Parkinson disease Code(s): G20 - PARKINSON'S DISEASE (4) Syncope Code(s): R55 - SYNCOPE AND COLLAPSE Qualifiers: Syncope type: unspecified Qualified Code(s): R55 - Syncope and collapse (5) UTI (urinary tract infection) Code(s): N39.0 - URINARY TRACT INFECTION, SITE NOT SPECIFIED Qualifiers: Urinary tract infection type: acute cystitis Hematuria presence: without hematuria Qualified Code(s): N30.00 - Acute cystitis without hematuria Visit type - Emergency Visit Emergency Visit: Yes ED Registration Date: 03/22/17 Care time: The patient presented to the Emergency Department on the above date and was hospitalized for further evaluation of their emergent condition. - New Patient This patient is new to me today: No - Critical Care Critical Care patient: No
[2017-03-26] MEDS: ATORVASTATIN CA 10 MG TABLET (FP) PO SCH (22:13)
[2017-03-27] MEDS: INSULIN SLIDING SCALE (NOVOLOG) 1 VIAL SQ SCH ×3 (06:31→22:11)
[2017-03-27] MEDS: HEPARIN NA (PORCINE) 5,000 UNITS/ML 1ML VIAL SQ SCH ×3 (06:38→22:11)
[2017-03-27] MEDS: CARBIDOPA/LEVODOPA 25/100 TABLET (FP) PO SCH ×3 (06:39→22:11)
[2017-03-27 07:25] LABS: MCH 28.9 pg (25.7-33.7); MEAN CELL VOLUME 87.5 fl (80-96); MEAN PLT VOLUME 7.3 fl (7.5-11.1); PLATELET COUNT 382 K/MM3 (134-434); RDW 14.9 % (11.6-15.6); WHITE BLOOD COUNT 6.6 K/mm3 (4.0-10.0)
[2017-03-27 08:34] LABS: ANION GAP 8 (8-16); CALCIUM 8.7 mg/dL (8.5-10.1); CO2 23 mmol/L (21-32); GLUCOSE,RANDOM 83 mg/dL (74-106)
[2017-03-27] MEDS: amLODIPine BESYLATE 5 MG TABLET (FP) PO SCH (10:55)
[2017-03-27] MEDS: OMEGA-3 ACID ETHYL ESTERS (FATTY-ACIDS) 1 GM CAPSULE (FP) PO SCH (10:55)
[2017-03-27] MEDS: SERTRALINE HCL 25 MG TABLET (FP) PO SCH (10:55)
[2017-03-27] MEDS: MULTIVITAMINS (DAILY MVI) TABLET (FP) PO SCH (10:55)
[2017-03-27] MEDS: POLYETHYLENE GLYCOL 3350 119 GM BTL PO SCH (10:56)
[2017-03-27] MEDS: LEVOFLOXACIN 500 MG IVPB 100 ML IVPB SCH (10:56)
[2017-03-27] MEDS: ASPIRIN COATED 81 MG TABLET.EC PO SCH (10:56)
[2017-03-27] MEDS: LISINOPRIL 10 MG TABLET (FP) PO SCH (10:56)
--- NOTE | 2017-03-27 16:12 | PN ---
Teaching Attending Note Name of Resident: Alan Schwarz ATTENDING PHYSICIAN STATEMENT I saw and evaluated the patient. I reviewed the resident's note and discussed the case with the resident. I agree with the resident's findings and plan as documented. SUBJECTIVE: Patient has no complaints. OBJECTIVE: Vital Signs Period Temp Pulse Resp BP Sys/Lockett Pulse Ox Last 24 Hr 97.4 F-98.7 F 54-70 18-20 123-147/40-73 100-100 HEART: S1S2, RRR LUNGS: Clear ABDOMEN: Soft, non-tender, non-distended, normal BS EXTREMITIES: No edema Current Medications Generic Name Dose Route Start Last Admin Trade Name Freq PRN Reason Stop Dose Admin Amlodipine Besylate 5 mg 03/23/17 10:00 03/27/17 10:55 Norvasc - PO 5 mg DAILY SUPA Administration Aspirin 81 mg 03/23/17 10:00 03/27/17 10:56 Ecotrin - PO 81 mg DAILY SUPA Administration Atorvastatin Calcium 10 mg 03/22/17 22:00 03/26/17 22:13 Lipitor - PO 10 mg HS SUPA Administration Carbidopa/Levodopa 1 each 03/22/17 22:00 03/27/17 14:54 Sinemet 25/100 - PO 1 each TID SUPA Administration Heparin Sodium (Porcine) 5,000 unit 03/22/17 22:00 03/27/17 14:54 Heparin - SQ 5,000 unit TID SUPA Administration Levofloxacin 100 mls @ 100 mls/hr 03/26/17 16:02 03/27/17 10:56 Levaquin 500 Mg Premixed Ivpb - IVPB 100 mls/hr DAILY SUPA Administration Insulin Aspart 1 vial 03/22/17 22:00 03/27/17 14:54 Novolog Vial Sliding Scale - SQ Not Given ACHS SUPA Protocol Lisinopril 10 mg 03/23/17 10:00 03/27/17 10:56 Prinivil PO 10 mg DAILY SUPA Administration Multivitamins/Minerals/Vitamin C 1 tab 03/23/17 10:00 03/27/17 10:55 Tab-A-Vit - PO 1 tab DAILY SUPA Administration Etgyw-0-Buca Ethyl Esters 1 gm 03/25/17 15:15 03/27/17 10:55 Lovaza - PO 1 gm DAILY SUPA Administration Polyethylene Glycol 17 gm 03/25/17 15:15 03/27/17 10:56 Miralax (For Daily Use) - PO 17 gm DAILY SUPA Administration Sertraline HCl 25 mg 03/23/17 10:00 03/27/17 10:55 Zoloft - PO 25 mg DAILY SUPA Administration ASSESSMENT AND PLAN: This is an 81 year old woman with a history of CVA, type 2 DM, HTN, hyperlipidemia, Parkinson disease who presented to the ER after losing consciousness x 2. 1. Syncope - Possibly vasovagal, orthostatic hypotension - No evidence of arrhythmia - Seizure unlikely 2. Pseudomonas UTI - Continue Levaquin 3. Acute kidney injury secondary to dehydration - Resolved 4. Acute anemia on chronic anemia - Likely dilutional - Hemoglobin stable - No evidence of bleeding 5. Type 2 DM - Continue Novolog sliding scale 6. HTN - Continue Norvasc, Lisinopril 7. History of CVA - Continue aspirin, Lipitor 8. Parkinson disease - Continue Sinemet 9. Hyperlipidemia - Continue Lipitor, Lovaza 10. Disposition - Continue PT - Plan for subacute rehab - awaiting authorization
--- NOTE | 2017-03-27 16:30 | PN ---
Physical Exam: SUBJECTIVE: Patient seen and examined at bedside. Patient with no new complaints. Awaiting NH placement. OBJECTIVE: Vital Signs Period Temp Pulse Resp BP Sys/Lockett Pulse Ox Last 24 Hr 97.4 F-98.7 F 54-70 18-20 123-147/40-73 100-100 GENERAL: The patient is awake, alert, and fully oriented, in no acute distress. HEAD: Normal with no signs of trauma. EYES: extraocular movements intact, sclera anicteric, conjunctiva clear. No ptosis. NECK: Trachea midline, full range of motion, supple. LUNGS: Breath sounds equal, clear to auscultation bilaterally, no wheezes, no crackles, no accessory muscle use. HEART: Regular rate and rhythm, S1, S2 without murmur, rub or gallop. ABDOMEN: Soft, nontender, nondistended, normoactive bowel sounds, no guarding, no rebound, no hepatosplenomegaly, no masses. EXTREMITIES: 2+ pulses, warm, well-perfused, no edema. NEUROLOGICAL: Cranial nerves II through X grossly intact. Normal speech, gait not observed. residual weakness on the left from previous infarct. PSYCH: Normal mood, normal affect. SKIN: Warm, dry, normal turgor, no rashes or lesions noted Laboratory Results - last 24 hr 03/26/17 03/26/17 03/27/17 17:04 22:12 05:35 WBC 6.6 RBC 2.85 L Hgb 8.2 L Hct 24.9 L MCV 87.5 MCH 28.9 MCHC 33.0 RDW 14.9 Plt Count 382 MPV 7.3 L Sodium Potassium Chloride Carbon Dioxide Anion Gap BUN Creatinine POC Glucometer 99 89 Random Glucose Calcium 03/27/17 03/27/17 03/27/17 05:35 06:19 12:00 WBC RBC Hgb Hct MCV MCH MCHC RDW Plt Count MPV Sodium 135 L Potassium 4.6 Chloride 104 Carbon Dioxide 23 Anion Gap 8 BUN 18 Creatinine 1.0 POC Glucometer 89 107 Random Glucose 83 Calcium 8.7 Active Medications Generic Name Dose Route Start Last Admin Trade Name Freq PRN Reason Stop Dose Admin Amlodipine Besylate 5 mg 03/23/17 10:00 03/27/17 10:55 Norvasc - PO 5 mg DAILY SUPA Administration Aspirin 81 mg 03/23/17 10:03/27/17 10:56 Ecotrin - PO 81 mg DAILY SUPA Administration Atorvastatin Calcium 10 mg 03/22/17 22:00 03/26/17 22:13 Lipitor - PO 10 mg HS SUPA Administration Carbidopa/Levodopa 1 each 03/22/17 22:00 03/27/17 14:54 Sinemet 25/100 - PO 1 each TID SUPA Administration Heparin Sodium (Porcine) 5,000 unit 03/22/17 22:00 03/27/17 14:54 Heparin - SQ 5,000 unit TID SUPA Administration Levofloxacin 100 mls @ 100 mls/hr 03/26/17 16:02 03/27/17 10:56 Levaquin 500 Mg Premixed Ivpb - IVPB 100 mls/hr DAILY SUPA Administration Insulin Aspart 1 vial 03/22/17 22:00 03/27/17 14:54 Novolog Vial Sliding Scale - SQ Not Given ACHS SUPA Protocol Lisinopril 10 mg 03/23/17 10:00 03/27/17 10:56 Prinivil PO 10 mg DAILY SUPA Administration Multivitamins/Minerals/Vitamin C 1 tab 03/23/17 10:00 03/27/17 10:55 Tab-A-Vit - PO 1 tab DAILY SUPA Administration Loois-6-Rtnz Ethyl Esters 1 gm 03/25/17 15:15 03/27/17 10:55 Lovaza - PO 1 gm DAILY SUPA Administration Polyethylene Glycol 17 gm 03/25/17 15:15 03/27/17 10:56 Miralax (For Daily Use) - PO 17 gm DAILY SUPA Administration Sertraline HCl 25 mg 03/23/17 10:00 03/27/17 10:55 Zoloft - PO 25 mg DAILY SUPA Administration ASSESSMENT/PLAN: The patient is an 81 yo f w/ 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 #Syncopal episodes likley 2/2 UTI vs cardiac origin vs seizure activity -carotid dopplers show moderate atherosclerotic disease without stenosis -CT head shows chronic ERICA infarct on the right and a right sided old thalamic infarct -levaquin 500 IV for pseudomonal coverage (day 3) -Urine cx showing proteus species and pansensitive pseudomonas aueriginosa -neurology consult -syncope unlikely to be secondary to seizure activity -EEG negative # Diabetes- controlled -BGM ACHS -ISS ACHS #parkinsons -continue with home sinemet 25/100 TID #HLD -home liptor 10 Mg HS #HTN- controlled -home lisinopril 10mg daily -home norvasc 5mg PO daily #FEN -no indication for fluids -monitor lytes -diabetic diet #prophylaxsis -Heparin SQ TID -no gi prophy indicated -Home ASA 81mg -PT consult #dispo -[facility] Patient is accepted to [facility], awaiting insurance approval. Problem List - Problems (1) Diabetes Code(s): E11.9 - TYPE 2 DIABETES MELLITUS WITHOUT COMPLICATIONS (2) HTN (hypertension) Code(s): I10 - ESSENTIAL (PRIMARY) HYPERTENSION (3) Parkinson disease Code(s): G20 - PARKINSON'S DISEASE (4) Syncope Code(s): R55 - SYNCOPE AND COLLAPSE Qualifiers: Qualified Code(s): R55 - Syncope and collapse (5) UTI (urinary tract infection) Code(s): N39.0 - URINARY TRACT INFECTION, SITE NOT SPECIFIED Qualifiers: Qualified Code(s): N30.00 - Acute cystitis without hematuria Visit type - Emergency Visit Emergency Visit: Yes ED Registration Date: 03/22/17 Care time: The patient presented to the Emergency Department on the above date and was hospitalized for further evaluation of their emergent condition. - New Patient This patient is new to me today: No - Critical Care Critical Care patient: No
[2017-03-27] MEDS: ATORVASTATIN CA 10 MG TABLET (FP) PO SCH (22:11)
[2017-03-28] MEDS: CARBIDOPA/LEVODOPA 25/100 TABLET (FP) PO SCH ×3 (06:43→21:43)
[2017-03-28] MEDS: HEPARIN NA (PORCINE) 5,000 UNITS/ML 1ML VIAL SQ SCH ×3 (06:43→21:43)
[2017-03-28] MEDS: INSULIN SLIDING SCALE (NOVOLOG) 1 VIAL SQ SCH ×4 (06:51→21:43)
[2017-03-28 07:59] LABS: MCH 29.4 pg (25.7-33.7); MCHC 33.5 g/dl (32.0-36.0); MEAN CELL VOLUME 87.8 fl (80-96); MEAN PLT VOLUME 7.3 fl (7.5-11.1); PLATELET COUNT 387 K/MM3 (134-434); RDW 15.1 % (11.6-15.6); WHITE BLOOD COUNT 6.7 K/mm3 (4.0-10.0)
[2017-03-28 08:30] LABS: ANION GAP 7 (8-16); CALCIUM 9.2 mg/dL (8.5-10.1); CO2 24 mmol/L (21-32); GLUCOSE,RANDOM 79 mg/dL (74-106)
[2017-03-28 08:33] LABS: ALK PHOS 30 U/L (45-117); BILIRUBIN,TOTAL 0.3 mg/dL (0.2-1.0); CREATININE 1.1 mg/dL (0.55-1.02); SGOT/AST 16 U/L (15-37); SGPT/ALT 9 U/L (12-78); TOT PROT 7.1 g/dl (6.4-8.2)
--- NOTE | 2017-03-28 09:25 | PN ---
Physical Exam: SUBJECTIVE: Patient seen and examined at bedside. Eating breakfast. Has no complaints. No acute events overnight. OBJECTIVE: Vital Signs Temperature 98.9 F 03/27/17 22:00 Pulse Rate 53 L 03/28/17 06:00 Respiratory Rate 20 03/28/17 06:00 Blood Pressure 119/51 03/28/17 06:00 O2 Sat by Pulse Oximetry (%) 100 03/27/17 22:00 GENERAL: The patient is awake, alert, and fully oriented, in no acute distress. HEAD: Normal with no signs of trauma. EYES: extraocular movements intact, sclera anicteric, conjunctiva clear. ENT: Ears normal, nares patent NECK: full range of motion LUNGS: Breath sounds equal, clear to auscultation bilaterally HEART: Bradycardic, S1, S2+ ABDOMEN: Soft, nontender, nondistended, normoactive bowel sounds EXTREMITIES: warm, well-perfused NEUROLOGICAL: Normal speech, gait not observed. PSYCH: Normal mood, normal affect. SKIN: Warm, dry Laboratory Results - last 24 hr 03/27/17 03/27/17 03/27/17 12:00 17:29 21:48 WBC RBC Hgb Hct MCV MCH MCHC RDW Plt Count MPV Sodium Potassium Chloride Carbon Dioxide Anion Gap BUN Creatinine Creat Clearance w eGFR POC Glucometer 107 83 129 Random Glucose Calcium Total Bilirubin AST ALT Alkaline Phosphatase Total Protein Albumin 03/28/17 03/28/17 03/28/17 05:30 05:30 06:15 WBC 6.7 RBC 2.94 L Hgb 8.6 L Hct 25.8 L MCV 87.8 MCH 29.4 MCHC 33.5 RDW 15.1 Plt Count 387 MPV 7.3 L Sodium 136 Potassium 4.6 Chloride 105 Carbon Dioxide 24 Anion Gap 7 L BUN 20 H Creatinine 1.1 H Creat Clearance w eGFR 47.55 POC Glucometer 92 Random Glucose 79 Calcium 9.2 Total Bilirubin 0.3 AST 16 ALT 9 L D Alkaline Phosphatase 30 L Total Protein 7.1 Albumin 3.0 L Active Medications Generic Name Dose Route Start Last Admin Trade Name Freq PRN Reason Stop Dose Admin Amlodipine Besylate 5 mg 03/23/17 10:00 03/27/17 10:55 Norvasc - PO 5 mg DAILY SUPA Administration Aspirin 81 mg 03/23/17 10:00 03/27/17 10:56 Ecotrin - PO 81 mg DAILY SUPA Administration Atorvastatin Calcium 10 mg 03/22/17 22:00 03/27/17 22:11 Lipitor - PO 10 mg HS SUPA Administration Carbidopa/Levodopa 1 each 03/22/17 22:00 03/28/17 06:43 Sinemet 25/100 - PO 1 each TID SUPA Administration Heparin Sodium (Porcine) 5,000 unit 03/22/17 22:00 03/28/17 06:43 Heparin - SQ 5,000 unit TID SUPA Administration Levofloxacin 100 mls @ 100 mls/hr 03/26/17 16:02 03/27/17 10:56 Levaquin 500 Mg Premixed Ivpb - IVPB 100 mls/hr DAILY SUPA Administration Insulin Aspart 1 vial 03/22/17 22:00 03/28/17 06:51 Novolog Vial Sliding Scale - SQ Not Given [facility] Protocol Lisinopril 10 mg 03/23/17 10:00 03/27/17 10:56 Prinivil PO 10 mg DAILY SUPA Administration Multivitamins/Minerals/Vitamin C 1 tab 03/23/17 10:00 03/27/17 10:55 Tab-A-Vit - PO 1 tab DAILY SUPA Administration Nwikp-9-Mnmp Ethyl Esters 1 gm 03/25/17 15:15 03/27/17 10:55 Lovaza - PO 1 gm DAILY SUPA Administration Polyethylene Glycol 17 gm 03/25/17 15:15 03/27/17 10:56 Miralax (For Daily Use) - PO 17 gm DAILY SUPA Administration Sertraline HCl 25 mg 03/23/17 10:00 03/27/17 10:55 Zoloft - PO 25 mg DAILY SUPA Administration ASSESSMENT/PLAN: 81 y/o F w/PMH of CVA (w/residual L sided weakness), Parkisons disease, DM, HTN admitted for syncope and found to have UTI in ER. -Syncope secondary to UTI vs seizure activity -No syncopal events since coming to ER. No acute events overnight. -For UTI; Levaquin 500 mg IV qd (day 4 of 7). UCx w/ pseudomonas aeruginosa and proteus mirabilis. -Will change to PO levaquin once pt is discharged for remainder of abx treatment. -DM -BGMs and ISS ACHS -Parkinsons Disease -c/w sinemet 25/100 mg PO TID -HTN -c/w lisinopril 10 mg po qd, norvasc 5 mg po qd -HLD -c/w lipitor 10 mg po qhs -DVT ppx -Heparin 5000 units sq tid -FEN -no fluids at this time -monitor electrolytes -diabetic diet -Dispo: -c/w PT (pt only able to walk 5 feet once on 03/26) -ready for d/c. Awaiting authorization for [facility] placement. Accepted to [facility]. Problem List - Problems (1) Diabetes Code(s): E11.9 - TYPE 2 DIABETES MELLITUS WITHOUT COMPLICATIONS (2) HTN (hypertension) Code(s): I10 - ESSENTIAL (PRIMARY) HYPERTENSION (3) Parkinson disease Code(s): G20 - PARKINSON'S DISEASE (4) Syncope Code(s): R55 - SYNCOPE AND COLLAPSE Qualifiers: Syncope type: unspecified Qualified Code(s): R55 - Syncope and collapse (5) UTI (urinary tract infection) Code(s): N39.0 - URINARY TRACT INFECTION, SITE NOT SPECIFIED Qualifiers: Urinary tract infection type: acute cystitis Hematuria presence: without hematuria Qualified Code(s): N30.00 - Acute cystitis without hematuria Visit type - Emergency Visit Emergency Visit: Yes ED Registration Date: 03/22/17 Care time: The patient presented to the Emergency Department on the above date and was hospitalized for further evaluation of their emergent condition. - New Patient This patient is new to me today: No - Critical Care Critical Care patient: No
[2017-03-28] MEDS: LEVOFLOXACIN 500 MG IVPB 100 ML IVPB SCH (09:54)
[2017-03-28] MEDS: LISINOPRIL 10 MG TABLET (FP) PO SCH (09:54)
[2017-03-28] MEDS: ASPIRIN COATED 81 MG TABLET.EC PO SCH (09:54)
[2017-03-28] MEDS: OMEGA-3 ACID ETHYL ESTERS (FATTY-ACIDS) 1 GM CAPSULE (FP) PO SCH (09:55)
[2017-03-28] MEDS: SERTRALINE HCL 25 MG TABLET (FP) PO SCH (09:55)
[2017-03-28] MEDS: amLODIPine BESYLATE 5 MG TABLET (FP) PO SCH (09:55)
[2017-03-28] MEDS: MULTIVITAMINS (DAILY MVI) TABLET (FP) PO SCH (09:55)
[2017-03-28] MEDS: POLYETHYLENE GLYCOL 3350 119 GM BTL PO SCH (09:56)
--- NOTE | 2017-03-28 10:19 | PN ---
Teaching Attending Note Name of Resident: Maurilio Alvarez ATTENDING PHYSICIAN STATEMENT I saw and evaluated the patient. I reviewed the resident's note and discussed the case with the resident. I agree with the resident's findings and plan as documented. SUBJECTIVE: Patient has no complaints. OBJECTIVE: Vital Signs Period Temp Pulse Resp BP Sys/Lockett Pulse Ox Last 24 Hr 98.7 F-99.1 F 53-60 18-20 119-154/51-64 100 HEART: S1S2, RRR LUNGS: Clear ABDOMEN: Soft, non-tender, non-distended, normal BS EXTREMITIES: No edema Current Medications Generic Name Dose Route Start Last Admin Trade Name Freq PRN Reason Stop Dose Admin Amlodipine Besylate 5 mg 03/23/17 10:00 03/28/17 09:55 Norvasc - PO 5 mg DAILY SUPA Administration Aspirin 81 mg 03/23/17 10:00 03/28/17 09:54 Ecotrin - PO 81 mg DAILY SUPA Administration Atorvastatin Calcium 10 mg 03/22/17 22:00 03/27/17 22:11 Lipitor - PO 10 mg HS SUPA Administration Carbidopa/Levodopa 1 each 03/22/17 22:00 03/28/17 06:43 Sinemet 25/100 - PO 1 each TID SUPA Administration Heparin Sodium (Porcine) 5,000 unit 03/22/17 22:00 03/28/17 06:43 Heparin - SQ 5,000 unit TID SUPA Administration Levofloxacin 100 mls @ 100 mls/hr 03/26/17 16:02 03/28/17 09:54 Levaquin 500 Mg Premixed Ivpb - IVPB 100 mls/hr DAILY SUPA Administration Insulin Aspart 1 vial 03/22/17 22:00 03/28/17 06:51 Novolog Vial Sliding Scale - SQ Not Given ACHS SUPA Protocol Lisinopril 10 mg 03/23/17 10:00 03/28/17 09:54 Prinivil PO 10 mg DAILY SUPA Administration Multivitamins/Minerals/Vitamin C 1 tab 03/23/17 10:00 03/28/17 09:55 Tab-A-Vit - PO 1 tab DAILY SUPA Administration Cxuae-9-Aers Ethyl Esters 1 gm 03/25/17 15:15 03/28/17 09:55 Lovaza - PO 1 gm DAILY SUPA Administration Polyethylene Glycol 17 gm 03/25/17 15:15 03/28/17 09:56 Miralax (For Daily Use) - PO 17 gm DAILY SUPA Administration Sertraline HCl 25 mg 03/23/17 10:00 03/28/17 09:55 Zoloft - PO 25 mg DAILY SUPA Administration ASSESSMENT AND PLAN: This is an 81 year old woman with a history of CVA, type 2 DM, HTN, hyperlipidemia, Parkinson disease who presented to the ER after losing consciousness x 2. 1. Syncope - Possibly vasovagal, orthostatic hypotension - No evidence of arrhythmia - Seizure unlikely 2. Pseudomonas UTI - Continue Levaquin 3. Acute kidney injury secondary to dehydration - Resolved 4. Acute anemia on chronic anemia - Likely dilutional - Hemoglobin stable - No evidence of bleeding 5. Stage 3 CKD 6. Type 2 DM - Continue Novolog sliding scale 7. HTN - Continue Norvasc, Lisinopril 8. History of CVA - Continue aspirin, Lipitor 9. Parkinson disease - Continue Sinemet 10. Hyperlipidemia - Continue Lipitor, Lovaza 11. Disposition - Continue PT - Plan for subacute rehab - awaiting authorization
[2017-03-28] MEDS: ATORVASTATIN CA 10 MG TABLET (FP) PO SCH (21:43)
[2017-03-29] MEDS: INSULIN SLIDING SCALE (NOVOLOG) 1 VIAL SQ SCH ×4 (06:01→21:22)
[2017-03-29] MEDS: CARBIDOPA/LEVODOPA 25/100 TABLET (FP) PO SCH ×3 (06:01→21:22)
[2017-03-29] MEDS: HEPARIN NA (PORCINE) 5,000 UNITS/ML 1ML VIAL SQ SCH ×3 (06:01→21:23)
[2017-03-29 07:01] LABS: MCH 29.3 pg (25.7-33.7); MCHC 33.4 g/dl (32.0-36.0); MEAN CELL VOLUME 87.7 fl (80-96); MEAN PLT VOLUME 7.1 fl (7.5-11.1); PLATELET COUNT 387 K/MM3 (134-434); RDW 15.4 % (11.6-15.6); WHITE BLOOD COUNT 7.4 K/mm3 (4.0-10.0)
[2017-03-29 07:37] LABS: ANION GAP 6 (8-16); CALCIUM 9.2 mg/dL (8.5-10.1); CO2 23 mmol/L (21-32); CREATININE 1.1 mg/dL (0.55-1.02); GLUCOSE,RANDOM 89 mg/dL (74-106)
[2017-03-29] MEDS: MULTIVITAMINS (DAILY MVI) TABLET (FP) PO SCH (09:37)
[2017-03-29] MEDS: LEVOFLOXACIN 500 MG IVPB 100 ML IVPB SCH (09:37)
[2017-03-29] MEDS: ASPIRIN COATED 81 MG TABLET.EC PO SCH (09:38)
[2017-03-29] MEDS: OMEGA-3 ACID ETHYL ESTERS (FATTY-ACIDS) 1 GM CAPSULE (FP) PO SCH (09:38)
[2017-03-29] MEDS: amLODIPine BESYLATE 5 MG TABLET (FP) PO SCH (09:38)
[2017-03-29] MEDS: LISINOPRIL 10 MG TABLET (FP) PO SCH (09:38)
[2017-03-29] MEDS: SERTRALINE HCL 25 MG TABLET (FP) PO SCH (09:38)
[2017-03-29] MEDS: POLYETHYLENE GLYCOL 3350 119 GM BTL PO SCH (09:38)
--- NOTE | 2017-03-29 11:52 | PN ---
Physical Exam: SUBJECTIVE: Patient seen and examined OBJECTIVE: Vital Signs Period Temp Pulse Resp BP Sys/Lockett Pulse Ox Last 24 Hr 98 F-98.8 F 54-64 18-20 120-150/58-65 98-100 GENERAL: The patient is awake, alert, and fully oriented, in no acute distress. LUNGS: Breath sounds equal, clear to auscultation bilaterally, no wheezes, no crackles, no accessory muscle use. HEART: Regular rate and rhythm, S1, S2 without murmur, rub or gallop. ABDOMEN: Soft, nontender, nondistended, normoactive bowel sounds, no guarding, no rebound, no hepatosplenomegaly, no masses. EXTREMITIES: 2+ pulses, warm, well-perfused, no edema. Laboratory Results - last 24 hr 03/28/17 03/28/17 03/28/17 11:47 16:33 21:42 WBC RBC Hgb Hct MCV MCH MCHC RDW Plt Count MPV Sodium Potassium Chloride Carbon Dioxide Anion Gap BUN Creatinine POC Glucometer 98 100 125 Random Glucose Calcium Albumin 03/29/17 03/29/17 03/29/17 05:25 05:25 05:55 WBC 7.4 RBC 3.00 L Hgb 8.8 L Hct 26.3 L MCV 87.7 MCH 29.3 MCHC 33.4 RDW 15.4 Plt Count 387 MPV 7.1 L Sodium 134 L Potassium 4.6 Chloride 105 Carbon Dioxide 23 Anion Gap 6 L BUN 21 H Creatinine 1.1 H POC Glucometer 95 Random Glucose 89 Calcium 9.2 Albumin 3.0 L Active Medications Generic Name Dose Route Start Last Admin Trade Name Lynnette PRN Reason Stop Dose Admin Amlodipine Besylate 5 mg 03/23/17 10:00 03/29/17 09:38 Norvasc - PO 5 mg DAILY SUPA Administration Aspirin 81 mg 03/23/17 10:00 03/29/17 09:38 Ecotrin - PO 81 mg DAILY SUPA Administration Atorvastatin Calcium 10 mg 03/22/17 22:00 03/28/17 21:43 Lipitor - PO 10 mg HS SUPA Administration Carbidopa/Levodopa 1 each 03/22/17 22:00 03/29/17 06:01 Sinemet 25/100 - PO 1 each TID SUPA Administration Heparin Sodium (Porcine) 5,000 unit 03/22/17 22:00 03/29/17 06:01 Heparin - SQ 5,000 unit TID SUPA Administration Levofloxacin 100 mls @ 100 mls/hr 03/26/17 16:02 03/29/17 09:37 Levaquin 500 Mg Premixed Ivpb - IVPB 100 mls/hr DAILY SUPA Administration Insulin Aspart 1 vial 03/22/17 22:00 03/29/17 11:30 Novolog Vial Sliding Scale - SQ Not Given ACHS SUPA Protocol Lisinopril 10 mg 03/23/17 10:00 03/29/17 09:38 Prinivil PO 10 mg DAILY SUPA Administration Multivitamins/Minerals/Vitamin C 1 tab 03/23/17 10:00 03/29/17 09:37 Tab-A-Vit - PO 1 tab DAILY SUPA Administration Yizxp-7-Bskm Ethyl Esters 1 gm 03/25/17 15:15 03/29/17 09:38 Lovaza - PO 1 gm DAILY SUPA Administration Polyethylene Glycol 17 gm 03/25/17 15:15 03/29/17 09:38 Miralax (For Daily Use) - PO 17 gm DAILY SUPA Administration Sertraline HCl 25 mg 03/23/17 10:00 03/29/17 09:38 Zoloft - PO 25 mg DAILY SUPA Administration ASSESSMENT/PLAN: This is an 81 year old woman with a history of CVA, type 2 DM, HTN, hyperlipidemia, Parkinson disease who presented to the ER after losing consciousness x 2. 1. Syncope - Possibly vasovagal, orthostatic hypotension - No evidence of arrhythmia - Seizure unlikely 2. Pseudomonas UTI - Continue Levaquin (day 5) 3. Acute kidney injury secondary to dehydration - Resolved 4. Acute anemia on chronic anemia - Likely dilutional - Hemoglobin stable - No evidence of bleeding 5. Stage 3 CKD 6. Type 2 DM - Continue Novolog sliding scale 7. HTN - Continue Norvasc, Lisinopril 8. History of CVA - Continue aspirin, Lipitor 9. Parkinson disease - Continue Sinemet 10. Hyperlipidemia - Continue Lipitor, Lovaza 11. Disposition - Continue PT - Plan for subacute rehab - awaiting authorization Visit type - Emergency Visit Emergency Visit: Yes ED Registration Date: 03/22/17 Care time: The patient presented to the Emergency Department on the above date and was hospitalized for further evaluation of their emergent condition. - New Patient This patient is new to me today: No - Critical Care Critical Care patient: No - Discharge Referral Referred to [facility] No
[2017-03-29] MEDS ORDERED: INSULIN (NOVOLOG) ASPART 100 UNITS/ML 10ML VIAL ONE (20:47)
[2017-03-29] MEDS: ATORVASTATIN CA 10 MG TABLET (FP) PO SCH (21:22)
[2017-03-30] MEDS: HEPARIN NA (PORCINE) 5,000 UNITS/ML 1ML VIAL SQ SCH ×3 (05:52→22:25)
[2017-03-30] MEDS: CARBIDOPA/LEVODOPA 25/100 TABLET (FP) PO SCH ×3 (05:52→22:25)
[2017-03-30] MEDS: INSULIN SLIDING SCALE (NOVOLOG) 1 VIAL SQ SCH ×4 (06:16→22:25)
--- NOTE | 2017-03-30 08:51 | PN ---
Physical Exam: SUBJECTIVE: Patient seen and examined at bedside. No new complaints. Patient states that she has not had a BM in several days. OBJECTIVE: Vital Signs Period Temp Pulse Resp BP Sys/Lockett Pulse Ox Last 24 Hr 98 F-98.4 F 55-99 18-20 132-150/53-70 98-98 GENERAL: The patient is awake, alert, and fully oriented, in no acute distress. HEAD: Normal with no signs of trauma. EYES: extraocular movements intact, sclera anicteric, conjunctiva clear. No ptosis. NECK: Trachea midline, full range of motion, supple. LUNGS: Breath sounds equal, clear to auscultation bilaterally, no wheezes, no crackles, no accessory muscle use. HEART: Regular rate and rhythm, S1, S2 without murmur, rub or gallop. ABDOMEN: Soft, nontender, nondistended, normoactive bowel sounds, no guarding, no rebound, no hepatosplenomegaly, no masses. EXTREMITIES: 2+ pulses, warm, well-perfused, no edema. NEUROLOGICAL: Cranial nerves II through X grossly intact. Normal speech, gait not observed. PSYCH: Normal mood, normal affect. SKIN: Warm, dry, normal turgor, no rashes or lesions noted Laboratory Results - last 24 hr 03/29/17 03/29/17 03/29/17 11:29 17:12 21:21 POC Glucometer 124 85 102 03/30/17 05:53 POC Glucometer 75 Active Medications Generic Name Dose Route Start Last Admin Trade Name Freq PRN Reason Stop Dose Admin Amlodipine Besylate 5 mg 03/30/17 10:00 Norvasc - PO DAILY SUPA Aspirin 81 mg 03/30/17 10:00 Ecotrin - PO DAILY SUPA Atorvastatin Calcium 10 mg 03/29/17 22:00 03/29/17 21:22 Lipitor - PO 10 mg HS SUPA Administration Carbidopa/Levodopa 1 each 03/29/17 14:00 03/30/17 05:52 Sinemet 25/100 - PO 1 each TID SUPA Administration Heparin Sodium (Porcine) 5,000 unit 03/29/17 14:00 03/30/17 05:52 Heparin - SQ 5,000 unit TID SUPA Administration Levofloxacin 100 mls @ 100 mls/hr 03/26/17 16:02 03/29/17 09:37 Levaquin 500 Mg Premixed Ivpb - IVPB 100 mls/hr DAILY SUPA Administration Insulin Aspart 1 vial 03/29/17 16:30 03/30/17 06:16 Novolog Vial Sliding Scale - SQ Not Given ACHS [facility] Protocol Lisinopril 10 mg 03/30/17 10:00 Prinivil PO DAILY SUPA Multivitamins/Minerals/Vitamin C 1 tab 03/30/17 10:00 Tab-A-Vit - PO DAILY SUPA Mkcai-5-Lmjp Ethyl Esters 1 gm 03/30/17 10:00 Lovaza - PO DAILY SUPA Polyethylene Glycol 17 gm 03/25/17 15:15 03/29/17 09:38 Miralax (For Daily Use) - PO 17 gm DAILY SUPA Administration Sertraline HCl 25 mg 03/30/17 10:00 Zoloft - PO DAILY SUPA ASSESSMENT/PLAN: The patient is an 81 yo f w/ 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 #Syncopal episodes likley 2/2 UTI vs cardiac origin vs seizure activity -carotid dopplers show moderate atherosclerotic disease without stenosis -CT head shows chronic ERICA infarct on the right and a right sided old thalamic infarct -levaquin 500 IV for pseudomonal coverage (day 6 of 7) -Urine cx showing proteus species and pansensitive pseudomonas aueriginosa -neurology consult -syncope unlikely to be secondary to seizure activity -EEG negative #constipation -patient without bowel movement in 3 days -patient on miralax daily -will add colace 100mg once #parkinsons -continue with home sinemet 25/100 TID #HLD -home liptor 10 Mg HS #HTN- controlled -home lisinopril 10mg daily -home norvasc 5mg PO daily # Diabetes- controlled -BGM ACHS -ISS ACHS #FEN -no indication for fluids -monitor lytes -diabetic diet #prophylaxsis -Heparin SQ TID -no gi prophy indicated -Home ASA 81mg -PT consult #dispo -awaiting [facility]pc placement. Patient is accepted to [facility], awaiting insurance approval. Problem List - Problems (1) Diabetes Code(s): E11.9 - TYPE 2 DIABETES MELLITUS WITHOUT COMPLICATIONS (2) HTN (hypertension) Code(s): I10 - ESSENTIAL (PRIMARY) HYPERTENSION (3) Parkinson disease Code(s): G20 - PARKINSON'S DISEASE (4) Syncope Code(s): R55 - SYNCOPE AND COLLAPSE Qualifiers: Syncope type: unspecified Qualified Code(s): R55 - Syncope and collapse; R55 - Syncope and collapse (5) UTI (urinary tract infection) Code(s): N39.0 - URINARY TRACT INFECTION, SITE NOT SPECIFIED Qualifiers: Urinary tract infection type: acute cystitis Hematuria presence: without hematuria Qualified Code(s): N30.00 - Acute cystitis without hematuria; N30.00 - Acute cystitis without hematuria Visit type - Emergency Visit Emergency Visit: Yes ED Registration Date: 03/22/17 Care time: The patient presented to the Emergency Department on the above date and was hospitalized for further evaluation of their emergent condition. - New Patient This patient is new to me today: No - Critical Care Critical Care patient: No
[2017-03-30] MEDS ORDERED: PT OWN MED DRAWER 7, Y5N ONE (09:30)
[2017-03-30] MEDS: amLODIPine BESYLATE 5 MG TABLET (FP) PO SCH (09:33)
[2017-03-30] MEDS: MULTIVITAMINS (DAILY MVI) TABLET (FP) PO SCH (09:34)
[2017-03-30] MEDS: LISINOPRIL 10 MG TABLET (FP) PO SCH (09:34)
[2017-03-30] MEDS: SERTRALINE HCL 25 MG TABLET (FP) PO SCH (09:34)
[2017-03-30] MEDS: LEVOFLOXACIN 500 MG IVPB 100 ML IVPB SCH (09:34)
[2017-03-30] MEDS: OMEGA-3 ACID ETHYL ESTERS (FATTY-ACIDS) 1 GM CAPSULE (FP) PO SCH (09:34)
[2017-03-30] MEDS: ASPIRIN COATED 81 MG TABLET.EC PO SCH (09:34)
[2017-03-30] MEDS: POLYETHYLENE GLYCOL 3350 119 GM BTL PO SCH (09:35)
[2017-03-30] MEDS ORDERED: DOCUSATE SODIUM 100 MG CAPSULE (FP) PO ONE (11:00)
--- NOTE | 2017-03-30 11:30 | PN ---
Teaching Attending Note Name of Resident: Alan Schwarz ATTENDING PHYSICIAN STATEMENT I saw and evaluated the patient. I reviewed the resident's note and discussed the case with the resident. I agree with the resident's findings and plan as documented. SUBJECTIVE: Patient has no complaints. OBJECTIVE: Vital Signs Period Temp Pulse Resp BP Sys/Lockett Pulse Ox Last 24 Hr 98 F-98.4 F 55-99 18-20 132-139/53-70 98 HEART: S1S2, RRR LUNGS: Clear ABDOMEN: Soft, non-tender, non-distended, normal BS EXTREMITIES: No edema Current Medications Generic Name Dose Route Start Last Admin Trade Name Freq PRN Reason Stop Dose Admin Amlodipine Besylate 5 mg 03/30/17 10:00 03/30/17 09:33 Norvasc - PO 5 mg DAILY SUPA Administration Aspirin 81 mg 03/30/17 10:00 03/30/17 09:34 Ecotrin - PO 81 mg DAILY SUPA Administration Atorvastatin Calcium 10 mg 03/29/17 22:00 03/29/17 21:22 Lipitor - PO 10 mg HS SUPA Administration Carbidopa/Levodopa 1 each 03/29/17 14:00 03/30/17 05:52 Sinemet 25/100 - PO 1 each TID SUPA Administration Heparin Sodium (Porcine) 5,000 unit 03/29/17 14:00 03/30/17 05:52 Heparin - SQ 5,000 unit TID SUPA Administration Levofloxacin 100 mls @ 100 mls/hr 03/26/17 16:02 03/30/17 09:34 Levaquin 500 Mg Premixed Ivpb - IVPB 100 mls/hr DAILY SUPA Administration Insulin Aspart 1 vial 03/29/17 16:30 03/30/17 06:16 Novolog Vial Sliding Scale - SQ Not Given ACHS SUPA Protocol Lisinopril 10 mg 03/30/17 10:00 03/30/17 09:34 Prinivil PO 10 mg DAILY SUPA Administration Multivitamins/Minerals/Vitamin C 1 tab 03/30/17 10:00 03/30/17 09:34 Tab-A-Vit - PO 1 tab DAILY SUPA Administration Faxfu-4-Sevu Ethyl Esters 1 gm 03/30/17 10:00 03/30/17 09:34 Lovaza - PO 1 gm DAILY SUPA Administration Polyethylene Glycol 17 gm 03/25/17 15:15 03/30/17 09:35 Miralax (For Daily Use) - PO 17 gm DAILY SUPA Administration Sertraline HCl 25 mg 03/30/17 10:00 03/30/17 09:34 Zoloft - PO 25 mg DAILY SUPA Administration ASSESSMENT AND PLAN: This is an 81 year old woman with a history of CVA, type 2 DM, HTN, hyperlipidemia, Parkinson disease who presented to the ER after losing consciousness x 2. 1. Syncope - Possibly vasovagal, orthostatic hypotension - No evidence of arrhythmia - Seizure unlikely 2. Pseudomonas UTI - Continue Levaquin (day 6) 3. Acute kidney injury secondary to dehydration - Resolved 4. Acute anemia on chronic anemia - Likely dilutional - Hemoglobin stable - No evidence of bleeding 5. Stage 3 CKD 6. Type 2 DM - Continue Novolog sliding scale 7. HTN - Continue Norvasc, Lisinopril 8. History of CVA - Continue aspirin, Lipitor 9. Parkinson disease - Continue Sinemet 10. Hyperlipidemia - Continue Lipitor, Lovaza 11. Disposition - Continue PT - Plan for subacute rehab - awaiting authorization
[2017-03-30] MEDS: ATORVASTATIN CA 10 MG TABLET (FP) PO SCH (22:24)
--- NOTE | 2017-03-31 06:30 | PN ---
Physical Exam: SUBJECTIVE: Patient seen and examined at bedside. No new complaints. OBJECTIVE: Vital Signs Period Temp Pulse Resp BP Sys/Lockett Pulse Ox Last 24 Hr 97.7 F-98.2 F 55-79 18-20 120-156/52-84 98-98 GENERAL: The patient is awake, alert, and fully oriented, in no acute distress. HEAD: Normal with no signs of trauma. EYES: extraocular movements intact, sclera anicteric, conjunctiva clear. No ptosis. NECK: Trachea midline, full range of motion, supple. LUNGS: Breath sounds equal, clear to auscultation bilaterally, no wheezes, no crackles, no accessory muscle use. HEART: Regular rate and rhythm, S1, S2 without murmur, rub or gallop. ABDOMEN: Soft, nontender, nondistended, normoactive bowel sounds, no guarding, no rebound, no hepatosplenomegaly, no masses. EXTREMITIES: 2+ pulses, warm, well-perfused, no edema. NEUROLOGICAL: Cranial nerves II through X grossly intact. Normal speech, gait not observed. PSYCH: Normal mood, normal affect. SKIN: Warm, dry, normal turgor, no rashes or lesions noted Laboratory Results - last 24 hr 03/30/17 03/30/17 03/30/17 11:48 17:19 22:23 POC Glucometer 102 128 109 Active Medications Generic Name Dose Route Start Last Admin Trade Name José Manuelq PRN Reason Stop Dose Admin Amlodipine Besylate 5 mg 03/30/17 10:00 03/30/17 09:33 Norvasc - PO 5 mg DAILY SUPA Administration Aspirin 81 mg 03/30/17 10:00 03/30/17 09:34 Ecotrin - PO 81 mg DAILY SUPA Administration Atorvastatin Calcium 10 mg 03/29/17 22:00 03/30/17 22:24 Lipitor - PO 10 mg HS SUPA Administration Carbidopa/Levodopa 1 each 03/29/17 14:00 03/30/17 22:25 Sinemet 25/100 - PO 1 each TID SUPA Administration Heparin Sodium (Porcine) 5,000 unit 03/29/17 14:00 03/30/17 22:25 Heparin - SQ 5,000 unit TID SUPA Administration Levofloxacin 100 mls @ 100 mls/hr 03/26/17 16:02 03/30/17 09:34 Levaquin 500 Mg Premixed Ivpb - IVPB 100 mls/hr DAILY SUPA Administration Insulin Aspart 1 vial 03/29/17 16:30 03/30/17 22:25 Novolog Vial Sliding Scale - SQ Not Given ACHS SUPA Protocol Lisinopril 10 mg 03/30/17 10:00 03/30/17 09:34 Prinivil PO 10 mg DAILY SUPA Administration Multivitamins/Minerals/Vitamin C 1 tab 03/30/17 10:00 03/30/17 09:34 Tab-A-Vit - PO 1 tab DAILY SUPA Administration Qkqti-9-Krjr Ethyl Esters 1 gm 03/30/17 10:00 03/30/17 09:34 Lovaza - PO 1 gm DAILY SUPA Administration Polyethylene Glycol 17 gm 03/25/17 15:15 03/30/17 09:35 Miralax (For Daily Use) - PO 17 gm DAILY SUPA Administration Sertraline HCl 25 mg 03/30/17 10:00 03/30/17 09:34 Zoloft - PO 25 mg DAILY SUPA Administration ASSESSMENT/PLAN: The patient is an 81 yo f w/ 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 #Syncopal episodes likley 2/2 UTI vs cardiac origin vs seizure activity -carotid dopplers show moderate atherosclerotic disease without stenosis -CT head shows chronic ERICA infarct on the right and a right sided old thalamic infarct -levaquin 500 IV for pseudomonal coverage (final day) -Urine cx showing proteus species and pansensitive pseudomonas aueriginosa -neurology consult -syncope unlikely to be secondary to seizure activity -EEG negative #constipation -patient without bowel movement in 3 days -patient on miralax daily -added colace 100mg once -will try dulcolax RI once #parkinsons -continue with home sinemet 25/100 TID #HLD -home liptor 10 Mg HS #HTN- controlled -home lisinopril 10mg daily -home norvasc 5mg PO daily # Diabetes- controlled -BGM ACHS -ISS ACHS #FEN -no indication for fluids -monitor lytes -diabetic diet #prophylaxsis -Heparin SQ TID -no gi prophy indicated -Home ASA 81mg -PT consult #dispo -awaiting [facility] placement. Patient is accepted to [facility], awaiting insurance approval. Problem List - Problems (1) Diabetes Code(s): E11.9 - TYPE 2 DIABETES MELLITUS WITHOUT COMPLICATIONS (2) HTN (hypertension) Code(s): I10 - ESSENTIAL (PRIMARY) HYPERTENSION (3) Parkinson disease Code(s): G20 - PARKINSON'S DISEASE (4) Syncope Code(s): R55 - SYNCOPE AND COLLAPSE Qualifiers: Syncope type: unspecified Qualified Code(s): R55 - Syncope and collapse; R55 - Syncope and collapse (5) UTI (urinary tract infection) Code(s): N39.0 - URINARY TRACT INFECTION, SITE NOT SPECIFIED Qualifiers: Urinary tract infection type: acute cystitis Hematuria presence: without hematuria Qualified Code(s): N30.00 - Acute cystitis without hematuria; N30.00 - Acute cystitis without hematuria Visit type - Emergency Visit Emergency Visit: Yes ED Registration Date: 03/22/17 Care time: The patient presented to the Emergency Department on the above date and was hospitalized for further evaluation of their emergent condition. - New Patient This patient is new to me today: No - Critical Care Critical Care patient: No
[2017-03-31] MEDS: CARBIDOPA/LEVODOPA 25/100 TABLET (FP) PO SCH ×3 (06:50→21:41)
[2017-03-31] MEDS: HEPARIN NA (PORCINE) 5,000 UNITS/ML 1ML VIAL SQ SCH ×3 (06:50→21:41)
[2017-03-31] MEDS: INSULIN SLIDING SCALE (NOVOLOG) 1 VIAL SQ SCH ×4 (06:54→21:41)
[2017-03-31] MEDS: LISINOPRIL 10 MG TABLET (FP) PO SCH (10:01)
[2017-03-31] MEDS: MULTIVITAMINS (DAILY MVI) TABLET (FP) PO SCH (10:01)
[2017-03-31] MEDS: ASPIRIN COATED 81 MG TABLET.EC PO SCH (10:01)
[2017-03-31] MEDS: OMEGA-3 ACID ETHYL ESTERS (FATTY-ACIDS) 1 GM CAPSULE (FP) PO SCH (10:02)
[2017-03-31] MEDS: SERTRALINE HCL 25 MG TABLET (FP) PO SCH (10:02)
[2017-03-31] MEDS: amLODIPine BESYLATE 5 MG TABLET (FP) PO SCH (10:02)
[2017-03-31] MEDS: LEVOFLOXACIN 500 MG IVPB 100 ML IVPB SCH (10:02)
[2017-03-31] MEDS: POLYETHYLENE GLYCOL 3350 119 GM BTL PO SCH (10:04)
[2017-03-31] MEDS ORDERED: BISACODYL 10 MG SUPP.RECT RC ONE ×2 (11:30→13:45)
--- NOTE | 2017-03-31 11:52 | PN ---
Teaching Attending Note Name of Resident: Alan Schwarz ATTENDING PHYSICIAN STATEMENT I saw and evaluated the patient. I reviewed the resident's note and discussed the case with the resident. I agree with the resident's findings and plan as documented. SUBJECTIVE: Patient complains of constipation. OBJECTIVE: Vital Signs Period Temp Pulse Resp BP Sys/Lockett Pulse Ox Last 24 Hr 97.7 F-98.2 F 59-79 18-20 120-156/52-84 98 HEART: S1S2, RRR LUNGS: Clear ABDOMEN: Soft, non-tender, non-distended, normal BS EXTREMITIES: No edema Current Medications Generic Name Dose Route Start Last Admin Trade Name Freq PRN Reason Stop Dose Admin Amlodipine Besylate 5 mg 03/30/17 10:00 03/31/17 10:02 Norvasc - PO 5 mg DAILY SUPA Administration Aspirin 81 mg 03/30/17 10:00 03/31/17 10:01 Ecotrin - PO 81 mg DAILY SUPA Administration Atorvastatin Calcium 10 mg 03/29/17 22:00 03/30/17 22:24 Lipitor - PO 10 mg HS SUPA Administration Carbidopa/Levodopa 1 each 03/29/17 14:00 03/31/17 06:50 Sinemet 25/100 - PO 1 each TID SUPA Administration Heparin Sodium (Porcine) 5,000 unit 03/29/17 14:00 03/31/17 06:50 Heparin - SQ 5,000 unit TID SUPA Administration Levofloxacin 100 mls @ 100 mls/hr 03/26/17 16:02 03/31/17 10:02 Levaquin 500 Mg Premixed Ivpb - IVPB 100 mls/hr DAILY SUPA Administration Insulin Aspart 1 vial 03/29/17 16:30 03/31/17 06:54 Novolog Vial Sliding Scale - SQ Not Given ACHS [facility] Protocol Lisinopril 10 mg 03/30/17 10:00 03/31/17 10:01 Prinivil PO 10 mg DAILY SUPA Administration Multivitamins/Minerals/Vitamin C 1 tab 03/30/17 10:00 03/31/17 10:01 Tab-A-Vit - PO 1 tab DAILY SUPA Administration Elooz-3-Ldif Ethyl Esters 1 gm 03/30/17 10:00 03/31/17 10:02 Lovaza - PO 1 gm DAILY SUPA Administration Polyethylene Glycol 17 gm 03/25/17 15:15 03/31/17 10:04 Miralax (For Daily Use) - PO Not Given DAILY SUPA Sertraline HCl 25 mg 03/30/17 10:00 03/31/17 10:02 Zoloft - PO 25 mg DAILY SUPA Administration ASSESSMENT AND PLAN: This is an 81 year old woman with a history of CVA, type 2 DM, HTN, hyperlipidemia, Parkinson disease who presented to the ER after losing consciousness x 2. 1. Syncope - Possibly vasovagal, orthostatic hypotension - No evidence of arrhythmia - Seizure unlikely 2. Pseudomonas UTI - Discontinue Levaquin 3. Acute kidney injury secondary to dehydration - Resolved 4. Acute anemia on chronic anemia - Likely dilutional - Hemoglobin stable - No evidence of bleeding 5. Stage 3 CKD 6. Type 2 DM - Continue Novolog sliding scale 7. HTN - Continue Norvasc, Lisinopril 8. History of CVA - Continue aspirin, Lipitor 9. Parkinson disease - Continue Sinemet 10. Hyperlipidemia - Continue Lipitor, Lovaza 11. Constipation - Continue Miralax - Dulcolax suppository as needed 12. Disposition - Continue PT - Plan for subacute rehab - awaiting authorization
[2017-03-31] MEDS: ATORVASTATIN CA 10 MG TABLET (FP) PO SCH (21:41)
[2017-04-01] MEDS: CARBIDOPA/LEVODOPA 25/100 TABLET (FP) PO SCH ×3 (06:35→21:09)
[2017-04-01] MEDS: HEPARIN NA (PORCINE) 5,000 UNITS/ML 1ML VIAL SQ SCH ×3 (06:35→21:08)
[2017-04-01] MEDS: INSULIN SLIDING SCALE (NOVOLOG) 1 VIAL SQ SCH ×2 (06:35→12:17)
[2017-04-01] MEDS ORDERED: PT OWN MED DRAWER 7, Y5N ONE (10:20)
[2017-04-01] MEDS: SERTRALINE HCL 25 MG TABLET (FP) PO SCH (10:25)
[2017-04-01] MEDS: LISINOPRIL 10 MG TABLET (FP) PO SCH (10:26)
[2017-04-01] MEDS: MULTIVITAMINS (DAILY MVI) TABLET (FP) PO SCH (10:26)
[2017-04-01] MEDS: OMEGA-3 ACID ETHYL ESTERS (FATTY-ACIDS) 1 GM CAPSULE (FP) PO SCH (10:26)
[2017-04-01] MEDS: ASPIRIN COATED 81 MG TABLET.EC PO SCH (10:26)
[2017-04-01] MEDS: POLYETHYLENE GLYCOL 3350 119 GM BTL PO SCH (10:26)
--- NOTE | 2017-04-01 12:03 | PN ---
Teaching Attending Note Name of Resident: Alan Schwarz ATTENDING PHYSICIAN STATEMENT I saw and evaluated the patient. I reviewed the resident's note and discussed the case with the resident. I agree with the resident's findings and plan as documented. SUBJECTIVE:asymptomatic. states she had a BM yesterday. denies CP, SOB, fever, chills, N/V/C/D OBJECTIVE: Last Vital Signs Temp Pulse Resp BP Pulse Ox 98.1 F 60 18 155/62 98 04/01/17 10:00 04/01/17 10:00 04/01/17 10:00 04/01/17 10:00 03/31/17 09:00 General NAD A&O x3 CV S1 S2 RRR Lungs CTA B/L no wheezing/rales/rhonhi Abdomen soft NT/ND +BS ASSESSMENT AND PLAN: 81 year old woman with a history of CVA, type 2 DM, HTN, hyperlipidemia, Parkinson disease who presented to the ER after losing consciousness x 2. 1. Syncope- possible vasovagal vs orthostatic. no repeated episodes since admission. no events on cardiac monitoring. echo normal. EEG normal. evaluated by neuro. 2. Pseudomonas UTI- completed course of levaquin 3. Acute kidney injury secondary to dehydration- Resolved 4. Acute anemia on chronic anemia- Hgb stable. no source of bleeding. no indication for txn 5. Stage 3 CKD 6. Type 2 DM- Continue Novolog sliding scale 7. HTN-controlled. Continue Norvasc, Lisinopril 8. History of CVA- Continue aspirin, Lipitor 9. Parkinson disease- Continue Sinemet 10. Hyperlipidemia- Continue Lipitor, Lovaza 11. Constipation- resolved. Continue Miralax as needed for daily BM 12. DVT ppx- hep sq 13. awaiting insurance authorization for [facility] placement
[2017-04-01] MEDS: amLODIPine BESYLATE 5 MG TABLET (FP) PO SCH (12:25)
--- NOTE | 2017-04-01 16:29 | PN ---
Physical Exam: SUBJECTIVE: Patient seen and examined at bedside. She states that she is back to her baseline and feeling well. OBJECTIVE: Vital Signs Period Temp Pulse Resp BP Sys/Lockett Pulse Ox Last 24 Hr 98.1 F-99.0 F 55-67 16-18 129-155/52-62 GENERAL: The patient is awake, alert, and fully oriented, in no acute distress. HEAD: Normal with no signs of trauma. EYES: extraocular movements intact, sclera anicteric, conjunctiva clear. No ptosis. NECK: Trachea midline, full range of motion, supple. LUNGS: Breath sounds equal, clear to auscultation bilaterally, no wheezes, no crackles, no accessory muscle use. HEART: Regular rate and rhythm, S1, S2 without murmur, rub or gallop. ABDOMEN: Soft, nontender, nondistended, normoactive bowel sounds, no guarding, no rebound, no hepatosplenomegaly, no masses. EXTREMITIES: 2+ pulses, warm, well-perfused, no edema. NEUROLOGICAL: Cranial nerves II through X grossly intact. Normal speech, gait not observed. SKIN: Warm, dry, normal turgor, no rashes or lesions noted Laboratory Results - last 24 hr 03/31/17 03/31/17 04/01/17 17:47 21:39 06:34 POC Glucometer 109 128 83 Active Medications Generic Name Dose Route Start Last Admin Trade Name Freq PRN Reason Stop Dose Admin Amlodipine Besylate 5 mg 03/30/17 10:00 04/01/17 12:25 Norvasc - PO 5 mg DAILY SUPA Administration Aspirin 81 mg 03/30/17 10:00 04/01/17 10:26 Ecotrin - PO 81 mg DAILY SUPA Administration Atorvastatin Calcium 10 mg 03/29/17 22:00 03/31/17 21:41 Lipitor - PO 10 mg HS SUPA Administration Carbidopa/Levodopa 1 each 03/29/17 14:00 04/01/17 14:13 Sinemet 25/100 - PO 1 each TID SUPA Administration Heparin Sodium (Porcine) 5,000 unit 03/29/17 14:00 04/01/17 14:13 Heparin - SQ 5,000 unit TID SUPA Administration Lisinopril 10 mg 03/30/17 10:00 04/01/17 10:26 Prinivil PO 10 mg DAILY SUPA Administration Multivitamins/Minerals/Vitamin C 1 tab 03/30/17 10:00 04/01/17 10:26 Tab-A-Vit - PO 1 tab DAILY SUPA Administration Epkeb-5-Irid Ethyl Esters 1 gm 03/30/17 10:00 04/01/17 10:26 Lovaza - PO 1 gm DAILY SUPA Administration Polyethylene Glycol 17 gm 03/25/17 15:15 04/01/17 10:26 Miralax (For Daily Use) - PO Not Given DAILY SUPA Sertraline HCl 25 mg 03/30/17 10:00 04/01/17 10:25 Zoloft - PO 25 mg DAILY SUPA Administration ASSESSMENT/PLAN: The patient is an 81 yo f w/ 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 #Syncopal episodes likley 2/2 UTI vs cardiac origin vs seizure activity -carotid dopplers show moderate atherosclerotic disease without stenosis -CT head shows chronic ERICA infarct on the right and a right sided old thalamic infarct -Patient has completed course of Levaquin -Urine cx showing proteus species and pansensitive pseudomonas aueriginosa -neurology consult -syncope unlikely to be secondary to seizure activity -EEG negative #constipation -patient had 2 BMs overnight. -patient without bowel movement in 3 days -patient on miralax daily #parkinsons -continue with home sinemet 25/100 TID #HLD -home liptor 10 Mg HS #HTN- controlled -home lisinopril 10mg daily -home norvasc 5mg PO daily # Diabetes- controlled -BGM ACHS -ISS ACHS #FEN -no indication for fluids -monitor lytes -diabetic diet #prophylaxsis -Heparin SQ TID -no gi prophy indicated -Home ASA 81mg -PT consult #dispo -awaiting long-term selection and placement. Problem List - Problems (1) Diabetes Code(s): E11.9 - TYPE 2 DIABETES MELLITUS WITHOUT COMPLICATIONS (2) HTN (hypertension) Code(s): I10 - ESSENTIAL (PRIMARY) HYPERTENSION (3) Parkinson disease Code(s): G20 - PARKINSON'S DISEASE (4) Syncope Code(s): R55 - SYNCOPE AND COLLAPSE Qualifiers: Syncope type: unspecified Qualified Code(s): R55 - Syncope and collapse; R55 - Syncope and collapse (5) UTI (urinary tract infection) Code(s): N39.0 - URINARY TRACT INFECTION, SITE NOT SPECIFIED Qualifiers: Urinary tract infection type: acute cystitis Hematuria presence: without hematuria Qualified Code(s): N30.00 - Acute cystitis without hematuria; N30.00 - Acute cystitis without hematuria Visit type - Emergency Visit Emergency Visit: Yes ED Registration Date: 03/22/17 Care time: The patient presented to the Emergency Department on the above date and was hospitalized for further evaluation of their emergent condition. - New Patient This patient is new to me today: No - Critical Care Critical Care patient: No
[2017-04-01] MEDS: ATORVASTATIN CA 10 MG TABLET (FP) PO SCH (21:09)
[2017-04-02] MEDS: HEPARIN NA (PORCINE) 5,000 UNITS/ML 1ML VIAL SQ SCH ×2 (05:38→14:18)
[2017-04-02] MEDS: CARBIDOPA/LEVODOPA 25/100 TABLET (FP) PO SCH ×2 (05:38→14:18)
[2017-04-02] MEDS: LISINOPRIL 10 MG TABLET (FP) PO SCH (10:01)
[2017-04-02] MEDS: MULTIVITAMINS (DAILY MVI) TABLET (FP) PO SCH (10:01)
[2017-04-02] MEDS: ASPIRIN COATED 81 MG TABLET.EC PO SCH (10:01)
[2017-04-02] MEDS: amLODIPine BESYLATE 5 MG TABLET (FP) PO SCH (10:01)
[2017-04-02] MEDS: SERTRALINE HCL 25 MG TABLET (FP) PO SCH (10:01)
[2017-04-02] MEDS: OMEGA-3 ACID ETHYL ESTERS (FATTY-ACIDS) 1 GM CAPSULE (FP) PO SCH (10:01)
[2017-04-02] MEDS: POLYETHYLENE GLYCOL 3350 119 GM BTL PO SCH (10:06)
--- NOTE | 2017-04-02 12:43 | PN ---
Teaching Attending Note Name of Resident: Alan Schwarz ATTENDING PHYSICIAN STATEMENT I saw and evaluated the patient. I reviewed the resident's note and discussed the case with the resident. I agree with the resident's findings and plan as documented. SUBJECTIVE:asymptomatic. denies Cp, SOB< fever, chills, N/V/C/D OBJECTIVE: Last Vital Signs Temp Pulse Resp BP Pulse Ox 98.3 F 63 18 115/50 100 04/02/17 10:00 04/02/17 10:00 04/02/17 10:00 04/02/17 10:00 04/01/17 21:00 General NAD A&O x3 ASSESSMENT AND PLAN: 81 year old woman with a history of CVA, type 2 DM, HTN, hyperlipidemia, Parkinson disease who presented to the ER after losing consciousness x 2. 1. Syncope- possible vasovagal vs orthostatic. no repeated episodes since admission. no events on cardiac monitoring. echo normal. EEG normal. evaluated by neuro. 2. Pseudomonas UTI- completed course of levaquin 3. Acute kidney injury secondary to dehydration- Resolved 4. Acute anemia on chronic anemia- Hgb stable. no source of bleeding. no indication for txn 5. Stage 3 CKD 6. Type 2 DM- Continue Novolog sliding scale 7. HTN-controlled. Continue Norvasc, Lisinopril 8. History of CVA- Continue aspirin, Lipitor 9. Parkinson disease- Continue Sinemet 10. Hyperlipidemia- Continue Lipitor, Lovaza 11. Constipation- resolved. Continue Miralax as needed for daily BM 12. DVT ppx- hep sq 13. has been accepted to facility. family does not like that facility and requesting facilities not covered by insurance. family will need to decide alternative placement if does not [facility] placement. medically cleared for discharge. would benefit from [facility] placement
[2017-04-02 13:51] VITALS: BP 135/57; PULSE 62; TEMP 98
--- NOTE | 2017-04-02 16:34 | DS ---
Physical Exam: SUBJECTIVE: Patient seen and examined at bedside. No new complaints. Patient feels as if she is at baseline. OBJECTIVE: Vital Signs Period Temp Pulse Resp BP Sys/Lockett Pulse Ox Last 24 Hr 97.9 F-98.4 F 58-70 16-18 115-137/38-69 100-100 PHYSICAL EXAM GENERAL: The patient is awake, alert, and fully oriented, in no acute distress. HEAD: Normal with no signs of trauma. EYES: extraocular movements intact, sclera anicteric, conjunctiva clear. NECK: Trachea midline, full range of motion, supple. LUNGS: Breath sounds equal, clear to auscultation bilaterally, no wheezes, no crackles, no accessory muscle use. HEART: Regular rate and rhythm, S1, S2 without murmur, rub or gallop. ABDOMEN: Soft, nontender, nondistended, normoactive bowel sounds, no guarding, no rebound, no hepatosplenomegaly, no masses. EXTREMITIES: 2+ pulses, warm, well-perfused, no edema. NEUROLOGICAL: Cranial nerves II through X grossly intact. Normal speech, gait not observed. PSYCH: Normal mood, normal affect. SKIN: Warm, dry, normal turgor, no rashes or lesions noted. LABS Laboratory Results - last 24 hr 04/02/17 08:38 POC Glucometer 80 HOSPITAL COURSE: Date of Admission:03/22/17 Patient is an 81 year old female with past medical history of CVA X3 with residual left sided weakness, Parkinson's disease, and non insulin dependent diabetes who presented to the ED complaining of 2 episodes of loss of consciousness. She was admitted to telemetry for syncopal episodes. Patient had a CT of the head which showed no acute pathology, old right ERICA territory infarct, old right thalamic lacunar infarct in addition to microvascular changes that have not changed. Carotid doppler was also negative. Neurology was consulted, EEG was negative, MRI will be done outpatient. There were no signs of arrhythmias on EKG and no significant changes on Echo. Patient was found to have a UTI with a urine culture growing proteus and pansensitive pseudomonas. She was first treated empirically with ceftriaxone and was switched to Levaquin once the cultures came back. The patient completed a 7 day course of these antibiotics during her admission. She was discharged to SNF with instructions to follow up with her PCP within one week. Date of Discharge: 04/02/17 Minutes to complete discharge: 20 Discharge Summary Reason For Visit: UTI,LUIS,SYNCOPE,DEHYDRATION Current Active Problems LUIS (acute kidney injury) (Acute) Diabetes (Acute) HTN (hypertension) (Acute) Parkinson disease (Acute) Syncope (Acute) TIA (transient ischemic attack) (Acute) UTI (urinary tract infection) (Acute) Condition: Improved - Instructions Diet, Activity, Other Instructions: You were admitted for a urinary tract infection. You may resume all of your home medications starting tomorrow. You should follow up with your primary care physician within one week. If you feel lightheaded, dizzy or if you experience fever, chills or if any of your symptoms get worse, please call your doctor or return to the ED. Referrals: STAFF,NOT ON [Non Staff, Medical] - Disposition: ALF FACILITY - Home Medications Comprehensive Discharge Medication List: Ambulatory Orders Amlodipine Besylate [Norvasc -] 5 mg PO DAILY 03/09/17 Aspirin [Aspirin EC] 81 mg PO DAILY 03/09/17 Carbidopa/Levodopa *Cr* 25/100 [Sinemet *Cr* 25/100 -] 1 combo PO TID 03/09/17 Lisinopril [Prinivil] 10 mg PO DAILY 03/09/17 Metformin HCl 500 mg PO DAILY 03/09/17 Multivitamins [Multivit ([facility] Formul[facility])] 1 tab PO DAILY 03/09/17 Carson-3 Fatty Acids [Carson-3] 1,000 mg PO DAILY 03/09/17 Sertraline HCl [Zoloft -] 25 mg PO DAILY 03/09/17 Simvastatin 10 mg PO HS 03/09/17 Problem List - Problems (1) Diabetes Code(s): E11.9 - TYPE 2 DIABETES MELLITUS WITHOUT COMPLICATIONS (2) HTN (hypertension) Code(s): I10 - ESSENTIAL (PRIMARY) HYPERTENSION (3) Parkinson disease Code(s): G20 - PARKINSON'S DISEASE (4) Syncope Code(s): R55 - SYNCOPE AND COLLAPSE Qualifiers: Syncope type: unspecified Qualified Code(s): R55 - Syncope and collapse; R55 - Syncope and collapse (5) UTI (urinary tract infection) Code(s): N39.0 - URINARY TRACT INFECTION, SITE NOT SPECIFIED Qualifiers: Urinary tract infection type: acute cystitis Hematuria presence: without hematuria Qualified Code(s): N30.00 - Acute cystitis without hematuria; N30.00 - Acute cystitis without hematuria This patient is new to me today: No Emergency Visit: Yes ED Registration Date: 03/22/17 Care time: The patient presented to the Emergency Department on the above date and was hospitalized for further evaluation of their emergent condition. Critical Care patient: No - Discharge Referral Referred to [facility] No
== END 2017-04-02 18:40 | DRG 463 ==
LOC: JER 11:47 → OBSVTOIN 16:50 → JERBED 16:50 → UNDOADMOB 17:14 → J4W 19:03 → JERBED 19:03 → J8W 03-29 11:05 → J4W 03-29 11:18 → J8W 03-29 13:02
PROVIDERS: ADMIT Internal Medicine; ATTEND Internal Medicine
DX: N39.0 Urinary tract infection, site not specified (principal); N17.9 Acute kidney failure, unspecified; E86.0 Dehydration; E11.9 Type 2 diabetes mellitus without complications; I10 Essential (primary) hypertension; G20 Parkinson's disease; R55 Syncope and collapse; G45.9 Transient cerebral ischemic attack, unspecified; B96.5 Pseudomonas (aeruginosa) (mallei) (pseudomallei) as the cause of diseases classified elsewhere; D63.8 Anemia in other chronic diseases classified elsewhere; I12.9 Hypertensive chronic kidney disease with stage 1 through stage 4 chronic kidney disease, or unspecified chronic kidney disease; E11.22 Type 2 diabetes mellitus with diabetic chronic kidney disease; N18.3 Chronic kidney disease, stage 3 (moderate); K59.00 Constipation, unspecified; I69.354 Hemiplegia and hemiparesis following cerebral infarction affecting left non-dominant side; E78.5 Hyperlipidemia, unspecified
CPT/HCPCS: 36415; 70450-TC; 71010-TC; 80048; 80053; 81003; 81015; 82040; 83605; 83735; 84100; 85025; 85027; 86850; 86900; 86901; 87086; 87186; 90688; 93005; 93010; 93306-TC; 93880-TC; 95816; 97116-GP; 97161-GP; 99282-25; G0008; J1644

== ENCOUNTER 2020-07-31 21:23 | Emergency (ER) | payer OTHER ==
[2020-07-31 21:43] VITALS: TEMP 98.8; BMI 27.6
[2020-07-31 22:48] LABS: BASO % 1.2 % (0-2.0); EOS % 6.6 % (0-4.5); HEMATOCRIT 29.3 % (32.4-45.2); HEMOGLOBIN 9.7 GM/dL (10.7-15.3); LYMPH % 43.6 % (8-40); MCH 29.6 pg (25.7-33.7); MCHC 33.2 g/dl (32.0-36.0); MEAN CELL VOLUME 89.4 fl (80-96); MEAN PLT VOLUME 7.5 fl (7.5-11.1); MONO % 7.9 % (3.8-10.2); NEUT % 40.7 % (42.8-82.8); PLATELET COUNT 270 K/MM3 (134-434); RBC 3.28 M/mm3 (3.60-5.2); RDW 14.8 % (11.6-15.6); WHITE BLOOD COUNT 5.8 K/mm3 (4.0-10.0)
[2020-07-31 22:56] LABS: INR 1.1 (0.83-1.09); PROTHROMBIN TIME (PATIENT) 13.3 SEC (9.7-13.0)
[2020-07-31 22:59] LABS: ACTIVATED PTT 32.7 SECONDS (25.2-36.5)
[2020-07-31 23:06] LABS: POTASSIUM 4.5 mmol/L (3.5-5.1)
[2020-07-31 23:08] LABS: ALBUMIN 3.4 g/dl (3.4-5.0); BLOOD UREA NITROGEN 20.9 mg/dL (7-18)
[2020-07-31 23:13] LABS: BILIRUBIN,TOTAL 0.2 mg/dL (0.2-1); TOT PROT 7.8 g/dl (6.4-8.2)
[2020-07-31] MEDS ORDERED: CLINDAMYCIN HCL 150 MG CAPSULE (FP) PO ONE (23:48)
[2020-08-01] MEDS ORDERED: CLINDAMYCIN HCL 150 MG CAPSULE (FP) ONE (00:27)
[2020-08-01 04:01] VITALS: BP 123/70; PULSE 84
== END 2020-08-01 06:28 | disposition home or self-care (01) ==
LOC: JER 21:23
DX: L81.0 Postinflammatory hyperpigmentation (principal)
CPT/HCPCS: 36415; 73630-TC-LT; 80053; 82550; 83605; 85025; 85610; 85730; 93005; 93010; 99285-25